=== PATIENT | male | born 1975 | race Caucasian/White ===

== ENCOUNTER 2017-11-02 02:17 | Inpatient (IN) ==
--- NOTE | 2017-11-02 03:33 | XR ---
EXAM DATE: 11/02/2017 3:29 AM EDT AGE/SEX: 42 years / Male INDICATIONS: Fever. Shortness of breath. CLINICAL DATA: This is the patient's initial encounter. Patient reports that signs and symptoms have been present for 2 days and indicates a pain score of 1/10. MEDICAL/SURGICAL HISTORY: None. None. COMPARISON: No prior exams available for comparison. FINDINGS: Portable AP view of the chest demonstrates a normal-sized cardiac silhouette. No effusion, consolidat ion, or pneumothorax is identified. The bones and soft tissues demonstrate no acute finding. CONCLUSION: No acute cardiopulmonary abnormality is identified. Electronically signed by: Arnold Cordero MD 11/02/2017 3:31 AM EDT
--- NOTE | 2017-11-02 03:36 | ED ---
HPI General Chief complaint: Respiratory Symptoms Stated complaint: SOB,Chest tight Time Seen by Provider: 11/02/17 02:50 Source: patient History of Present Illness HPI narrative: The patient is a 42 year old male who presents to the [facility] emergency department with a history of HIV, Bipolar disorder, hypertension c/o new onset headaches, shortness of breath and cough for 1 month duration. Today, his shortness of breath became acutely worse when he was on a brisk walk, he felt dizzy and tightness in his chest. His cough has been nonproductive in the beginning with associated sore throat. Now his cough is productive of green sputum. His headaches have been frontal in nature with associated photophobia. He notable has not been receiving treatment for his HIV for 5 years since diagnosis. When asked why he does not take any HIV related medications, he reports that it is a long story and refuses to elaborate. The patient's review of systems is limited as the patient repeatedly refuses to answer questions. Related Data Allergies Allergy/AdvReac Type Severity Reaction Status Date / Time No Known Allergies Allergy Unverified 11/02/17 02:24 Review of Systems Constitutional Reports anorexia, Reports difficulty sleeping, Reports lethargy and Reports poor appetite Eyes Reports blurry vision, Reports eye pain and Reports photophobia ENT Reports nasal congestion and Reports post nasal drip Cardiovascular Reports as per HPI and Reports dyspnea on exertion Respiratory Reports chest congestion, Reports cough, Denies hemoptysis, Reports pain on inspiration, Reports pain with cough and Reports dyspnea on exertion Gastrointestinal Reports constipation and Reports diarrhea (alternating diarrhea and constipation ) Genitourinary Reports system reviewed and no additional complaints, except as docu Musculoskeletal Reports system reviewed and no additional complaints, except as docu Integumentary/Breasts Reports system reviewed and no additional complaints, except as docu and Denies rash Neurologic Reports dizziness and Reports headache(s) Psychiatric Denies depression and Reports irritability Endocrine Reports system reviewed and no additional complaints, except as docu Hematologic/Lymphatic Reports system reviewed and no additional complaints, except as docu [facility] Medical History Medical History AIDS (Acute) Bipolar 1 disorder (Acute) HIV (human immunodeficiency virus infection) (Acute) Hypertension (Acute) Noncompliance (Acute) Orthopedic aftercare for healing pathologic lower arm fracture (Acute) Family History Family History Other Family history of hypertension Social History Social History Substance History: Active Abuse Smoking Status: Current every day smoker Tobacco Type: Cigarettes Packs Per Day: 1 Cigarettes Per Day: 20.0 How Often Do You Have a Drink Containing Alcohol: 4 or more times a week Hx Recent Travel: No Recent Travel in [facility] within the Last 8 Weeks: No Recent Out of Country Travel within the Last 8 Weeks: No Immunization History Tetanus Immunization: >5 Years Hx Influenza Vaccine This Season: No Exam Const Nutritional Appearance: thin Orientation: alert, awake and oriented x3 Limitations: behavioral limitations (patient is a poor historian with restricted information shared) HENMT Head: normocephalic and atraumatic Nose: no nasal discharge and no epistaxis Mouth: moist mucous membranes Throat: uvula midline and other (Posterior oropharynx is mildly erythematous. No thrush noted.) Eyes Sclera: normal sclerae Pupils: PERRL Neck Neck: trachea midline and no JVD Lymphatic: no lymphadenopathy noted Resp Effort & Inspection: no use of accessory muscles Auscultation: clear to auscultation bilaterally Cardio Rate: regular rate Rhythm: regular rhythm Heart Sounds: no murmurs GI Inspection: non-distended Palpation: soft, no hepatosplenomegaly and tender (diffusely tender to palpation ) Skin General: dry skin (warm) Neuro General: alert and awake Cranial Nerves: other Speech: speech normal Motor: no movement abnormalities noted Extrem General: normal to inspection, no clubbing, no cyanosis and no edema Psych Speech and Movement: speech and movement normal Mood: irritable mood Affect: irritable affect and blunted Attitude: guarded, avoids eye contact and refuses to answer Course Consultations Consultation #1: The patient's case including history, pertinent physical examination findings, and laboratory studies were discussed with Dr. Oconnor. It was agreed that the patient would be admitted to the hospitalist service. Initial Documented Vital Signs Temperature 99.3 F 11/02/17 02:24 Pulse Rate 104 H 11/02/17 02:24 Respiratory Rate 17 11/02/17 02:24 Blood Pressure 135/73 11/02/17 02:24 Pulse Oximetry 99 11/02/17 02:24 Last Documented Vital Signs Temperature 97.2 F L 11/02/17 16:00 Pulse Rate 79 11/02/17 16:00 Respiratory Rate 20 11/02/17 16:00 Blood Pressure 117/66 11/02/17 16:00 Pulse Oximetry 98 11/02/17 16:00 Medical Decision Making MDM Narrative Medical decision making narrative: During the course of the patient's emergency department visit, the patient's history, examination, and differential diagnosis were reviewed with the patient. The patient was placed on a hospital monitor with oximetry and frequent blood pressure monitoring. The patient had IV access obtained and blood work sent for analysis. The patient was initially provided normal saline 1 L IV fluid bolus, Levaquin 750 mg IV for suspected bronchitis versus pneumonia. The patient's diagnostic evaluation was remarkable for a white count of 6.1, platelets 212, neutrophil percent 70.9, hemoglobin within normal limits at 13.7 , PT PTT within normal limits, chemistry is remarkable for a troponin I that is less than 0.02, CPK is elevated consistent with rhabdomyolysis with a CPK of 3008. CTA CK-MB percent within normal limits. BUN less than 2 BNP is less than 2, BUN 22, AST 94. Alcohol level less than 3. Chest x-ray showed no acute cardiopulmonary disease. The patient will be admitted to the hospital for rhabdomyolysis. The patient reports that he does use illicit drugs, however he refuses to elaborate on which drugs. The patient's results were discussed with the patient, including the plan of care. I explained that further testing and/ or monitoring is indicated based on the patient's history, examination, and/ or laboratory findings. Therefore, I recommended admission for additional evaluation. The patient expressed understanding and was agreeable with this plan. The patient was admitted to the hospital in stable condition and sent to a bed under the care of the [facility] service. Medical Screen Exam Complete: Yes Emergency Medical Condition: Yes Differential Diagnosis Differential Diagnosis: Shortness of breath/cough: HIV associated pneumonia vs congestive heart failure vs lung disease Photophobia/headache: CMV retinitis vs optic neuritis vs HIV associated encephalitis Lab Data Result diagrams: 11/02/17 03:25 11/02/17 03:25 Lab Results 11/02/17 11/02/17 11/02/17 Range/Units 03:25 03:25 03:25 WBC 6.1 (4.0-11.0) th/mm3 RBC 4.74 (4.50-5.90) mil/mm3 Hgb 13.7 (13.0-17.0) gm/dL Hct 40.2 (39.0-51.0) % MCV 84.8 (80.0-100.0) fL MCH 28.9 (27.0-34.0) pg MCHC 34.0 (32.0-36.0) % RDW 12.7 (11.6-17.2) % Plt Count 212 (150-450) th/mm3 MPV 8.1 (7.0-11.0) fL Neut % (Auto) 70.9 H (16.0-70.0) % Lymph % (Auto) 19.9 (9.0-44.0) % [place] % (Auto) 5.5 (0.0-8.0) % Eos % (Auto) 3.0 (0.0-4.0) % Baso % (Auto) 0.7 (0.0-2.0) % Neut # (Auto) 4.4 (1.8-7.7) th/mm3 Lymph # (Auto) 1.2 (1.0-4.8) th/mm3 [place] # (Auto) 0.3 (0.0-0.9) th/mm3 Eos # (Auto) 0.2 (0.0-0.4) th/mm3 Baso # (Auto) 0.0 (0.0-0.2) th/mm3 WBC Differential . Differential Comment Auto diff final PT 10.2 (9.8-11.6) sec INR 1.0 Ratio APTT 26.6 (24.3-30.1) sec Sodium 140 (136-145) meq/L Potassium 3.6 (3.5-5.1) meq/L Chloride 108 H (98-107) meq/L Carbon Dioxide 26.4 (21.0-32.0) meq/L Anion Gap 6 (5-15) meq/L BUN 22 H (7-18) mg/dL Creatinine 0.89 (0.60-1.30) mg/dL Estimated GFR Greater than 89 (>89) mL/min Random Glucose 82 (74-106) mg/dL Hemoglobin A1c (4.3-6.0) % Lactic Acid (0.4-2.0) mmol/L Calcium 8.7 (8.5-10.1) mg/dL Magnesium 2.0 (1.5-2.5) mg/dL Total Bilirubin 0.5 (0.2-1.0) mg/dL AST 94 H (15-37) U/L ALT 33 (12-78) U/L Alkaline Phosphatase 83 (45-117) U/L Total Creatine Kinase 3008 H (39-308) U/L CK-MB (CK-2) 33.6 H (0.5-3.6) ng/mL CK-MB (CK-2) % 1.1 (0.0-4.0) % Troponin I Less than 0.02 L (0.02-0.05) ng/mL B-Natriuretic Peptide (0-100) pg/mL Total Protein 7.6 (6.4-8.2) g/dL Albumin 3.8 (3.4-5.0) g/dL Lipase 124 (73-393) U/L TSH (0.358-3.740) uIU/mL Free T4 (0.76-1.46) ng/dL Serum Alcohol Less than 3 (0-5) mg/dL HIV 1&2 Ab/P24 Ag 4thGn (Nonreactive) 11/02/17 11/02/17 11/02/17 Range/Units 03:25 03:32 13:04 WBC (4.0-11.0) th/mm3 RBC (4.50-5.90) mil/mm3 Hgb (13.0-17.0) gm/dL Hct (39.0-51.0) % MCV (80.0-100.0) fL MCH (27.0-34.0) pg MCHC (32.0-36.0) % RDW (11.6-17.2) % Plt Count (150-450) th/mm3 MPV (7.0-11.0) fL Neut % (Auto) (16.0-70.0) % Lymph % (Auto) (9.0-44.0) % [place] % (Auto) (0.0-8.0) % Eos % (Auto) (0.0-4.0) % Baso % (Auto) (0.0-2.0) % Neut # (Auto) (1.8-7.7) th/mm3 Lymph # (Auto) (1.0-4.8) th/mm3 [place] # (Auto) (0.0-0.9) th/mm3 Eos # (Auto) (0.0-0.4) th/mm3 Baso # (Auto) (0.0-0.2) th/mm3 WBC Differential Differential Comment PT (9.8-11.6) sec INR Ratio APTT (24.3-30.1) sec Sodium (136-145) meq/L Potassium (3.5-5.1) meq/L Chloride (98-107) meq/L Carbon Dioxide (21.0-32.0) meq/L Anion Gap (5-15) meq/L BUN (7-18) mg/dL Creatinine (0.60-1.30) mg/dL Estimated GFR (>89) mL/min Random Glucose (74-106) mg/dL Hemoglobin A1c (4.3-6.0) % Lactic Acid 0.5 (0.4-2.0) mmol/L Calcium (8.5-10.1) mg/dL Magnesium (1.5-2.5) mg/dL Total Bilirubin (0.2-1.0) mg/dL AST (15-37) U/L ALT (12-78) U/L Alkaline Phosphatase (45-117) U/L Total Creatine Kinase (39-308) U/L CK-MB (CK-2) (0.5-3.6) ng/mL CK-MB (CK-2) % (0.0-4.0) % Troponin I (0.02-0.05) ng/mL B-Natriuretic Peptide Less than 2 (0-100) pg/mL Total Protein (6.4-8.2) g/dL Albumin (3.4-5.0) g/dL Lipase (73-393) U/L TSH 0.740 (0.358-3.740) uIU/mL Free T4 (0.76-1.46) ng/dL Serum Alcohol (0-5) mg/dL HIV 1&2 Ab/P24 Ag 4thGn (Nonreactive) 11/02/17 11/02/17 11/02/17 Range/Units 13:15 13:15 13:15 WBC (4.0-11.0) th/mm3 RBC (4.50-5.90) mil/mm3 Hgb (13.0-17.0) gm/dL Hct (39.0-51.0) % MCV (80.0-100.0) fL MCH (27.0-34.0) pg MCHC (32.0-36.0) % RDW (11.6-17.2) % Plt Count (150-450) th/mm3 MPV (7.0-11.0) fL Neut % (Auto) (16.0-70.0) % Lymph % (Auto) (9.0-44.0) % [place] % (Auto) (0.0-8.0) % Eos % (Auto) (0.0-4.0) % Baso % (Auto) (0.0-2.0) % Neut # (Auto) (1.8-7.7) th/mm3 Lymph # (Auto) (1.0-4.8) th/mm3 [place] # (Auto) (0.0-0.9) th/mm3 Eos # (Auto) (0.0-0.4) th/mm3 Baso # (Auto) (0.0-0.2) th/mm3 WBC Differential Differential Comment PT (9.8-11.6) sec INR Ratio APTT (24.3-30.1) sec Sodium (136-145) meq/L Potassium (3.5-5.1) meq/L Chloride (98-107) meq/L Carbon Dioxide (21.0-32.0) meq/L Anion Gap (5-15) meq/L BUN (7-18) mg/dL Creatinine (0.60-1.30) mg/dL Estimated GFR (>89) mL/min Random Glucose (74-106) mg/dL Hemoglobin A1c 5.3 (4.3-6.0) % Lactic Acid (0.4-2.0) mmol/L Calcium (8.5-10.1) mg/dL Magnesium (1.5-2.5) mg/dL Total Bilirubin (0.2-1.0) mg/dL AST (15-37) U/L ALT (12-78) U/L Alkaline Phosphatase (45-117) U/L Total Creatine Kinase (39-308) U/L CK-MB (CK-2) (0.5-3.6) ng/mL CK-MB (CK-2) % (0.0-4.0) % Troponin I (0.02-0.05) ng/mL B-Natriuretic Peptide (0-100) pg/mL Total Protein (6.4-8.2) g/dL Albumin (3.4-5.0) g/dL Lipase (73-393) U/L TSH (0.358-3.740) uIU/mL Free T4 1.04 (0.76-1.46) ng/dL Serum Alcohol (0-5) mg/dL HIV 1&2 Ab/P24 Ag 4thGn Reflex H (Nonreactive) Imaging Data Radiologist's impression: Chest X-Ray 11/02/17 03:10 CONCLUSION: No acute cardiopulmonary abnormality is identified. Head CT 11/02/17 03:14 CONCLUSION: No acute intracranial abnormality is identified. . Discharge Plan Discharge Disposition Patient Disposition: 30 Still Patient Discharge Details Diagnosis: Rhabdomyolysis, Bronchitis Physicians Team ED Provider: Anju Adkins Primary Care Provider: Primary Care Gloria Álvarez Attending Provider: Rajinder Osorio Discharge Interventions Interventions: ED Discharge Assessment Last Done: 11/02/17 06:09 Status ED Status: Left Department Discharge Information Discharge Date/Time: 11/02/17 06:11
[2017-11-02 03:40] LABS: Baso % (Auto) 0.7 % (0.0-2.0); Eos # (Auto) 0.2 th/mm3 (0.0-0.4); Hematocrit 40.2 % (39.0-51.0); Hemoglobin 13.7 gm/dL (13.0-17.0); Lymph # (Auto) 1.2 th/mm3 (1.0-4.8); Lymph % (Auto) 19.9 % (9.0-44.0); Mean Corpuscular Hemoglobin 28.9 pg (27.0-34.0); Mean Corpuscular Volume 84.8 fL (80.0-100.0); Mean Platelet Volume 8.1 fL (7.0-11.0); Mono # (Auto) 0.3 th/mm3 (0.0-0.9); Mono % (Auto) 5.5 % (0.0-8.0); Neut # (Auto) 4.4 th/mm3 (1.8-7.7); Neut % (Auto) 70.9 % (16.0-70.0); Platelet Count 212 th/mm3 (150-450); Red Blood Count 4.74 mil/mm3 (4.50-5.90); Red Cell Distribution Width 12.7 % (11.6-17.2); White Blood Count 6.1 th/mm3 (4.0-11.0)
[2017-11-02 03:52] LABS: Activated Partial Thrombo Time 26.6 sec (24.3-30.1); Prothrombin Time 10.2 sec (9.8-11.6)
[2017-11-02 03:58] LABS: Albumin 3.8 g/dL (3.4-5.0); Anion Gap 6 meq/L (5-15); Aspartate Aminotransferase 94 U/L (15-37); Blood Urea Nitrogen 22 mg/dL (7-18); Calcium 8.7 mg/dL (8.5-10.1); Carbon Dioxide 26.4 meq/L (21.0-32.0); Chloride 108 meq/L (98-107); Glomerular Filtration Rate Greater Than 89 mL/min (>89); Glucose,Random 82 mg/dL (74-106); Lipase 124 U/L (73-393); Potassium 3.6 meq/L (3.5-5.1); Sodium 140 meq/L (136-145)
[2017-11-02 03:59] LABS: Alanine Aminotransferase 33 U/L (12-78)
[2017-11-02 04:12] LABS: Alkaline Phosphatase 83 U/L (45-117); Creatine Kinase 3008 U/L (39-308); Total Protein 7.6 g/dL (6.4-8.2)
[2017-11-02 04:24] LABS: CKMB Percent 1.1 % (0.0-4.0); Creatine Kinase MB 33.6 ng/mL (0.5-3.6)
[2017-11-02] MEDS ORDERED: Sod Chloride 0.9% Inj 1,000 ML IV.SIG ONE (04:25)
--- NOTE | 2017-11-02 04:26 | CT ---
EXAM DATE: 11/02/2017 4:21 AM EDT AGE/SEX: 42 years / Male INDICATIONS: Headaches. CLINICAL DATA: This is the patient's initial encounter. Patient reports that signs and symptoms have been present for 1 day and indicates a pain score of 7/10. MEDICAL/SURGICAL HISTORY: None. None. RADIATION DOSE: 37.73 CTDI (mGy) COMPARISON: No prior exams available for comparison. TECHNIQUE: CT of the head without contrast. Using automated exposure control and adjustment of the mA and/or kV according to patient size, radiation dose was kept as low as reasonably achievable to ob tain optimal diagnostic quality images. DICOM format image data is available electronically for revi ew and comparison. FINDINGS: Cerebrum: The ventricles are normal. No midline shift, mass lesion, hemorrhage or acute infarction. No extraaxial fluid collections are seen. Posterior Fossa: The cerebellum and brainstem demonstrate no acute abnormality. The 4th ventricle is midline. The cerebellopontine angle is within normal limits. Extracranial: The visualized sinuses are clear. Skull: The calvaria is intact. No skull fracture. CONCLUSION: No acute intracranial abnormality is identified. . Electronically signed by: Arnold Cordero MD 11/02/2017 4:25 AM EDT
[2017-11-02] MEDS ORDERED: Acetaminophen 325 MG Tablet PO PRN (04:46)
[2017-11-02] MEDS ORDERED: Bisacodyl 10 MG Supp RECTAL PRN ×2 (04:46→12:13)
[2017-11-02] MEDS: Sod Chloride 0.9% Inj 1,000 ML IV.CONT SCH ×2 (05:27→09:00)
--- NOTE | 2017-11-02 07:55 | ECG ---
Date Performed: 11/02/2017 Time Performed: 03:31:12 PTAGE: 42 years EKG: Sinus rhythm NORMAL ECG PREVIOUS TRACING : 07/22/2005 17.35 No significant change from previous tracing noted. DOCTOR: Osmar Reyes Interpretating Date/Time 11/02/2017 07:53:16
[2017-11-02] MEDS ORDERED: Senna/Docusate Sodium 8.6/50 MG Tablet PO SCH (09:00)
[2017-11-02] MEDS ORDERED: Zolpidem Tartrate 5 MG Tablet PO PRN (12:13)
[2017-11-02] MEDS ORDERED: Morphine Sulfate Inj 2 MG/ML Vial IV.PUSH PRN (12:15)
[2017-11-02] MEDS ORDERED: Morphine Inj 4 MG/ML Vial IV.PUSH PRN (12:15)
[2017-11-02] MEDS ORDERED: Naloxone Inj 0.4 MG/ML Vial IV.PUSH PRN (12:15)
--- NOTE | 2017-11-02 12:15 | P.HPIM ---
History of Present Illness Service: [facility] Primary Care Physician: No Primary Care Physician Chief Complaint: SOB/CHEST TIGHTNESS History of Present Illness: Patient is a 42-year-old male who is brought into [facility] emergency department with a history of HIV positive, bipolar disorder, hypertension, and new onset of headache and shortness of breath and a cough for at least a month. Patient has a history of shortness of breath that has been worsening worsens when walking. He felt dizzy and tightness in his chest therefore presented emergency he has had a nonproductive cough and some sore throat. Patient currently states that he is homeless. Has had some headaches on and off that are frontal. He has not taken any medications for his HIV for at least 18+ months if not longer More than likely has HIV and full-blown AIDS We will check CD4 counts Was found to have rhabdomyolysis will start on fluids and will be monitored. Review of Systems All other systems reviewed negative except as stated [facility] - History History Provided By: Patient - Medical History Medical History: Medical History (Last Updated 11/02/17 @ 11:57 by Rajinder Osoiro DO) AIDS Bipolar 1 disorder HIV (human immunodeficiency virus infection) Hypertension Noncompliance Orthopedic aftercare for healing pathologic lower arm fracture - Family History Family History: Family History (Last Updated 11/02/17 @ 11:57 by Rajinder Osorio DO) Other Family history of hypertension - Tobacco History Second Hand Smoke Exposure: No Tobacco Use In Past 30 Days: Yes Smoking Status: Never smoker Tobacco Type: Cigarettes Packs Per Day: 1 Cigarettes Per Day: 20.0 - Alcohol History How Often Do You Have a Drink Containing Alcohol: 4 or more times a week - Substance Use History Substance History: Active Abuse - Substance Use Type Marijuana Status: Active Frequency: EVERY THREE DAYS Reason for Use: Calm Down - Travel History History of Recent Travel: No Recent Travel in the [place] Within the Last 8 Weeks: No Recent Travel Out of the Country Within the Last 8 Weeks: No - Immunization History Tetanus Immunization: >5 Years Hx Influenza Vaccine This Season: Yes Medications and Allergies Active Medications: Active Medications Acetaminophen (Tylenol) 650 mg PO Q4H PRN PRN Reason: Temp > 100.4 Al Hydroxide/Mg Hydroxide (Milk Of Magnesia Liq) 30 ml PO Q12H PRN PRN Reason: Mild Constipation Bisacodyl (Dulcolax Supp) 10 mg RECTAL DAILY PRN PRN Reason: SEVERE CONSITIPATION Sodium Chloride (Ns Inj) 1,000 mls @ 200 mls/hr IV.CONT .Q5H [facility] Last Admin: 11/02/17 09:00 Dose: 200 mls/hr Lactulose (Lactulose Liq) 30 ml PO DAILY PRN PRN Reason: SEVERE CONSITIPATION Ondansetron HCl (Zofran Inj) 4 mg IV.PUSH Q6H PRN PRN Reason: NAUSEA OR VOMITING Senna/Docusate Sodium (Hilary-Colace) 1 tab PO BID [facility] Last Admin: 11/02/17 08:05 Dose: Not Given Sennosides (Senokot) 17.2 mg PO Q12H PRN PRN Reason: Moderate Constipation Allergies Allergy/AdvReac Type Severity Reaction Status Date / Time No Known Allergies Allergy Unverified 11/02/17 02:24 Exam Vital signs: Vital Signs 11/02/17 02:24 11/02/17 06:45 11/02/17 08:00 Temperature 99.3 F 97.4 F L 97.7 F Pulse Rate 104 H 82 72 Respiratory Rate 17 19 20 Blood Pressure 135/73 95/59 L 99/60 L Pulse Oximetry 99 96 99 11/02/17 09:00 Temperature Pulse Rate 72 Respiratory Rate Blood Pressure Pulse Oximetry Intake & Output 11/01/17 11/02/17 11/02/17 18:59 06:59 18:59 Intake Total 1150 / 1150 1000 / 1000 Balance 1150 / 1150 1000 / 1000 Weight 60.4 kg Intake: IV 1150 / 1150 1000 / 1000 NS Inj 1,000 ML @ 200 mls/hr IV 1000 / 1000 .CONT .Q5H [facility] Rx#:[id number] Levaquin 750 mg Premix Inj 150 150 / 150 ML @ 100 mls/hr IV.SIG ONCE ONE Rx#:[id number] NS Inj 1,000 ML @ Wide Open IV. 1000 / 1000 SIG BOLUS ONE Rx#:[id number] Other: Weight On Admission 60.4 kg Narrative: GENERAL: Thin appearing male. Currently awake alert and oriented 3 talkative and cooperative SKIN: Warm and dry. HEAD: Atraumatic. Normocephalic. EYES: Pupils equal and round. No scleral icterus. No injection or drainage. EOMI ENT: No nasal bleeding or discharge. Mucous membranes pink and moist. Tongue is midline NECK: Trachea midline. No JVD. Supple CARDIOVASCULAR: Regular rate and rhythm. S1-S2 no S3 or S RESPIRATORY: No accessory muscle use. Clear to auscultation. Breath sounds equal bilaterally. GASTROINTESTINAL: Abdomen soft, non-tender, nondistended. Hepatic and splenic margins not palpable. MUSCULOSKELETAL: Extremities without clubbing, cyanosis, or edema. No obvious deformities. NEUROLOGICAL: Awake and alert. No obvious cranial nerve deficits. Motor grossly within normal limits. 4out of 5 muscle strength in the arms and legs. Normal speech. PSYCHIATRIC: Appropriate mood and affect; insight and judgment ABnormal. Results - Labs CBC & Chem 7: 11/02/17 03:25 11/02/17 03:25 Labs: Short CBC 11/02/17 Range/Units 03:25 WBC 6.1 (4.0-11.0) th/mm3 Hgb 13.7 (13.0-17.0) gm/dL Hct 40.2 (39.0-51.0) % Plt Count 212 (150-450) th/mm3 BMP 11/02/17 03:25 Sodium 140 Potassium 3.6 Chloride 108 H Carbon Dioxide 26.4 BUN 22 H Creatinine 0.89 Calcium 8.7 Cardiac Enzymes 11/02/17 Range/Units 03:25 Total Creatine Kinase 3008 H (39-308) U/L CK-MB (CK-2) 33.6 H (0.5-3.6) ng/mL Troponin I Less than 0.02 L (0.02-0.05) ng/mL Liver Function 11/02/17 Range/Units 03:25 Total Bilirubin 0.5 (0.2-1.0) mg/dL AST 94 H (15-37) U/L ALT 33 (12-78) U/L Alkaline Phosphatase 83 (45-117) U/L Albumin 3.8 (3.4-5.0) g/dL - Imaging Impressions Chest X-Ray 11/02/17 03:10 CONCLUSION: No acute cardiopulmonary abnormality is identified. Head CT 11/02/17 03:14 CONCLUSION: No acute intracranial abnormality is identified. . Caprini VTE Risk Assessment Caprini VTE Risk Assessment: Moderate/High Risk (score >= 2) Caprini Risk Assessment Model: Point Value = 1 Point Value = 2 Point Value = 3 Point Value = 5 Age 41-60 Minor surgery BMI > 25 kg/m2 Swollen legs Varicose veins or History of unexplained or recurrent spontaneous Oral contraceptives or hormone replacement Sepsis (< 1 month) Serious lung disease, including pneumonia (< 1 month) Abnormal pulmonary function Acute myocardial infarction Congestive heart failure (< 1 month) History of inflammatory bowel disease Medical patient at bed rest Age 61-74 Arthroscopic surgery Major open surgery (> 45 min) Laparoscopic surgery (> 45 min) Malignancy Confined to bed (> 72 hours) Immobilizing plaster cast Central venous access Age >= 75 History of VTE Family history of VTE Factor V Leiden Prothrombin [id number] Lupus anticoagulant Anticardiolipin antibodies Elevated serum homocysteine Heparin-induced thrombocytopenia Other congenital or acquired thrombophilia Stroke (< 1 month) Elective arthroplasty Hip, pelvis, or leg fracture Acute spinal cord injury (< 1 month) Prophylaxis Regimen: Total Risk Factor Score Risk Level Prophylaxis Regimen 0-1 Low Early ambulation 2 Moderate Order ONE of the following: *Sequential Compression Device (SCD) *Heparin 5000 units SQ BID 3-4 Higher Order ONE of the following medications: *Heparin 5000 units SQ TID *Enoxaparin/Lovenox 40 mg SQ daily (WT < 150 kg, CrCl > 30 mL/min) *Enoxaparin/Lovenox 30 mg SQ daily (WT < 150 kg, CrCl > 10-29 mL/min) *Enoxaparin/Lovenox 30 mg SQ BID (WT < 150 kg, CrCl > 30 mL/min) AND/OR *Sequential Compression Device (SCD) 5 or more Highest Order ONE of the following medications: *Heparin 5000 units SQ TID (Preferred with Epidurals) *Enoxaparin/Lovenox 40 mg SQ daily (WT < 150 kg, CrCl > 30 mL/min) *Enoxaparin/Lovenox 30 mg SQ daily (WT < 150 kg, CrCl > 10-29 mL/min) *Enoxaparin/Lovenox 30 mg SQ BID (WT < 150 kg, CrCl > 30 mL/min) AND *Sequential Compression Device (SCD) Assessment and Plan - Plan HIV/AIDS with complete medical noncompliance currently on no medications -Check CD4 counts Rhabdomyolysis found per labs continue on IV fluids wide bicarb History of bipolar History of hypertension Try to obtain treatment for these Malignant noncompliance-patient is noncompliant with medications Tobacco and alcohol abuse and marijuana abuse Continue DVT and GI prophylaxis Code Status: Full code Discussed Condition With: RN and patient Discharge Planning: Pending improvement H&P: Quality - VTE Deep Vein Thrombosis/Pulmonary Embolism Present on Admission: No
[2017-11-02] MEDS: Sodium Bicarbonate 8.4% Inj 150 MEQ in Sod Chloride 0.9% Inj 850 ML IV.CONT SCH ×2 (13:04→21:16)
[2017-11-02] MEDS: Enoxaparin Inj 40 MG/0.4 ML Syringe SQ SCH (13:16)
[2017-11-02 15:50] LABS: Hemoglobin A1c 5.3 % (4.3-6.0)
[2017-11-02] MEDS: Senna/Docusate Sodium 8.6/50 MG Tablet PO SCH (21:17)
[2017-11-03] MEDS: Sodium Bicarbonate 8.4% Inj 150 MEQ in Sod Chloride 0.9% Inj 850 ML IV.CONT SCH ×8 (00:03→23:47)
[2017-11-03 09:13] LABS: Baso % (Auto) 0.6 % (0.0-2.0); Eos # (Auto) 0.2 th/mm3 (0.0-0.4); Eos % (Auto) 4.9 % (0.0-4.0); Hematocrit 36.7 % (39.0-51.0); Hemoglobin 12.5 gm/dL (13.0-17.0); Lymph % (Auto) 25.1 % (9.0-44.0); Mean Corpuscular HGB Conc 34.1 % (32.0-36.0); Mean Corpuscular Hemoglobin 28.5 pg (27.0-34.0); Mean Corpuscular Volume 83.5 fL (80.0-100.0); Mean Platelet Volume 8.5 fL (7.0-11.0); Mono # (Auto) 0.3 th/mm3 (0.0-0.9); Mono % (Auto) 7.4 % (0.0-8.0); Neut # (Auto) 2.5 th/mm3 (1.8-7.7); Platelet Count 163 th/mm3 (150-450); Red Blood Count 4.39 mil/mm3 (4.50-5.90)
[2017-11-03 09:17] LABS: Prothrombin Time 10.4 sec (9.8-11.6)
[2017-11-03 09:40] LABS: Alanine Aminotransferase 19 U/L (12-78); Albumin 2.6 g/dL (3.4-5.0); Anion Gap 8 meq/L (5-15); Aspartate Aminotransferase 34 U/L (15-37); Blood Urea Nitrogen 11 mg/dL (7-18); Calcium 7.6 mg/dL (8.5-10.1); Carbon Dioxide 28.5 meq/L (21.0-32.0); Chloride 111 meq/L (98-107); Glomerular Filtration Rate Greater Than 89 mL/min (>89); Glucose,Random 81 mg/dL (74-106); Magnesium 1.8 mg/dL (1.5-2.5); Potassium 3.5 meq/L (3.5-5.1); Sodium 147 meq/L (136-145)
[2017-11-03 09:45] LABS: Alkaline Phosphatase 63 U/L (45-117); Creatine Kinase 697 U/L (39-308); Total Protein 5.4 g/dL (6.4-8.2)
[2017-11-03 10:01] LABS: CKMB Percent 0.9 % (0.0-4.0); Creatine Kinase MB 6.4 ng/mL (0.5-3.6)
[2017-11-03] MEDS: Senna/Docusate Sodium 8.6/50 MG Tablet PO SCH ×2 (10:55→20:13)
[2017-11-03] MEDS: Enoxaparin Inj 40 MG/0.4 ML Syringe SQ SCH (14:09)
--- NOTE | 2017-11-03 16:49 | P.PNIM ---
Subjective Interval history: Patient is a 42-year-old male who is brought into [facility] emergency department with a history of HIV positive, bipolar disorder, hypertension, and new onset of headache and shortness of breath and a cough for at least a month. Patient has a history of shortness of breath that has been worsening worsens when walking. He felt dizzy and tightness in his chest therefore presented emergency he has had a nonproductive cough and some sore throat. Patient currently states that he is homeless. Has had some headaches on and off that are frontal. He has not taken any medications for his HIV for at least 18+ months if not longer More than likely has HIV and full-blown AIDS We will check CD4 counts Was found to have rhabdomyolysis will start on fluids and will be monitored. 8-5 HAS POSITIVE COUGH AND CONGESTION WILL ADD MUCINEX AND DUONEBS PROBABLY HAS FULL BLOWN AIDS NEEDS PT AND OT Physical Exam Vital signs: Vital Signs 11/02/17 19:11 11/02/17 20:00 11/03/17 00:00 Temperature 98.3 F 98.4 F Pulse Rate 62 62 Respiratory Rate 18 18 Blood Pressure 114/72 116/76 Pulse Oximetry 98 96 94 L 11/03/17 04:00 11/03/17 08:00 11/03/17 09:00 Temperature 98.3 F 97.9 F Pulse Rate 56 L 71 56 L Respiratory Rate 19 20 Blood Pressure 117/75 135/74 Pulse Oximetry 92 L 95 11/03/17 10:13 11/03/17 12:00 Temperature 99.1 F Pulse Rate 58 L Respiratory Rate 18 Blood Pressure 140/80 Pulse Oximetry 93 L 94 L Intake & Output 11/02/17 11/03/17 11/03/17 18:59 06:59 18:59 Intake Total 1600 / 1600 2039 / 2040 1000 / 1000 Output Total 0 / 0 Balance 1600 / 1600 2039 / 2039 1000 / 1000 Weight 62.5 kg Intake: IV 1600 / 1600 1800 / 1800 1000 / 1000 NS Inj 1,000 ML @ 200 mls/hr IV 1600 / 1600 .CONT .Q5H [facility] Rx#:[id number] Sodium Bicarbonate 8.4% Inj 150 1800 / 1800 1000 / 1000 MEQ In NS Inj 850 ML @ 150 mls /hr IV.CONT .Q6H40M [facility] Rx#: [id number] Oral 240 / 240 Output: Urine 0 / 0 Narrative: GENERAL: Thin appearing male. Currently awake alert and oriented 3 talkative and cooperative SKIN: Warm and dry. HEAD: Atraumatic. Normocephalic. EYES: Pupils equal and round. No scleral icterus. No injection or drainage. EOMI ENT: No nasal bleeding or discharge. Mucous membranes pink and moist. Tongue is midline NECK: Trachea midline. No JVD. Supple CARDIOVASCULAR: Regular rate and rhythm. S1-S2 no S3 or S RESPIRATORY: No accessory muscle use. Clear to auscultation. Breath sounds equal bilaterally. GASTROINTESTINAL: Abdomen soft, non-tender, nondistended. Hepatic and splenic margins not palpable. MUSCULOSKELETAL: Extremities without clubbing, cyanosis, or edema. No obvious deformities. NEUROLOGICAL: Awake and alert. No obvious cranial nerve deficits. Motor grossly within normal limits. 4out of 5 muscle strength in the arms and legs. Normal speech. PSYCHIATRIC: Appropriate mood and affect; insight and judgment ABnormal. Results - Labs CBC & Chem 7: 11/03/17 07:53 11/03/17 07:53 Laboratory Results - last 24 hr 11/02/17 11/02/17 11/03/17 13:15 13:15 07:53 WBC 4.0 RBC 4.39 L Hgb 12.5 L Hct 36.7 L MCV 83.5 MCH 28.5 MCHC 34.1 RDW 13.0 Plt Count 163 MPV 8.5 Neut % (Auto) 62.0 Lymph % (Auto) 25.1 [place] % (Auto) 7.4 Eos % (Auto) 4.9 H Baso % (Auto) 0.6 Neut # (Auto) 2.5 Lymph # (Auto) 1.0 [place] # (Auto) 0.3 Eos # (Auto) 0.2 Baso # (Auto) 0.0 WBC Differential . Differential Comment Auto diff final PT INR Sodium Potassium Chloride Carbon Dioxide Anion Gap BUN Creatinine Estimated GFR Random Glucose Hemoglobin A1c 5.3 Calcium Phosphorus Magnesium Total Bilirubin AST ALT Alkaline Phosphatase Total Creatine Kinase CK-MB (CK-2) CK-MB (CK-2) % Total Protein Albumin HIV 1&2 Ab/P24 Ag 4thGn Reflex H 11/03/17 11/03/17 07:53 07:53 WBC RBC Hgb Hct MCV MCH MCHC RDW Plt Count MPV Neut % (Auto) Lymph % (Auto) [place] % (Auto) Eos % (Auto) Baso % (Auto) Neut # (Auto) Lymph # (Auto) [place] # (Auto) Eos # (Auto) Baso # (Auto) WBC Differential Differential Comment PT 10.4 INR 1.0 Sodium 147 H Potassium 3.5 Chloride 111 H Carbon Dioxide 28.5 Anion Gap 8 BUN 11 Creatinine 0.75 Estimated GFR Greater than 89 Random Glucose 81 Hemoglobin A1c Calcium 7.6 L D Phosphorus 2.0 L Magnesium 1.8 Total Bilirubin 0.4 AST 34 ALT 19 Alkaline Phosphatase 63 Total Creatine Kinase 697 H CK-MB (CK-2) 6.4 H CK-MB (CK-2) % 0.9 Total Protein 5.4 L D Albumin 2.6 L D HIV 1&2 Ab/P24 Ag 4thGn Microbiology 11/02/17 03:15 Blood - Peripheral Aerobic Blood Culture - Preliminary No growth in 1 day 11/02/17 03:15 Blood - Peripheral Anaerobic Blood Culture - Preliminary No growth in 1 day 11/02/17 03:31 Blood - Peripheral Aerobic Blood Culture - Preliminary No growth in 1 day 11/02/17 03:31 Blood - Peripheral Anaerobic Blood Culture - Preliminary No growth in 1 day - Imaging Chest X-Ray 11/02/17 03:10 CONCLUSION: No acute cardiopulmonary abnormality is identified. Head CT 11/02/17 03:14 CONCLUSION: No acute intracranial abnormality is identified. . - Procedures NONE Assessment and Plan - Plan HIV/AIDS with complete medical noncompliance currently on no medications -Check CD4 counts Rhabdomyolysis found per labs continue on IV fluids wide bicarb IMPROVING WITH FLUIDS History of bipolar History of hypertension Malignant noncompliance-patient is noncompliant with medications CIWA NEEDED MVI THIAMINE FOLIC ACID Tobacco and alcohol abuse and marijuana abuse Continue DVT and GI prophylaxis POSSIBLE BRONCHITIS START MUCINEX AND DUONEBS Code Status: FULL CODE Discussed Condition With: RN AND CM AND PT Discharge Planning: Pending improvement
[2017-11-03] MEDS: oxyCODONE/Acetaminophen 10/325 Tablet PO PRN (20:12)
[2017-11-03] MEDS: guaiFENesin 600 MG ER Tablet PO SCH (20:13)
[2017-11-04] MEDS: Sodium Bicarbonate 8.4% Inj 150 MEQ in Sod Chloride 0.9% Inj 850 ML IV.CONT SCH ×6 (03:37→18:14)
[2017-11-04] MEDS: oxyCODONE/Acetaminophen 10/325 Tablet PO PRN ×4 (03:37→21:57)
[2017-11-04 07:30] LABS: Baso % (Auto) 0.5 % (0.0-2.0); Eos # (Auto) 0.2 th/mm3 (0.0-0.4); Eos % (Auto) 5.7 % (0.0-4.0); Hematocrit 37.8 % (39.0-51.0); Hemoglobin 12.6 gm/dL (13.0-17.0); Lymph # (Auto) 0.9 th/mm3 (1.0-4.8); Lymph % (Auto) 32.8 % (9.0-44.0); Mean Corpuscular HGB Conc 33.2 % (32.0-36.0); Mean Corpuscular Hemoglobin 28.4 pg (27.0-34.0); Mean Corpuscular Volume 85.6 fL (80.0-100.0); Mean Platelet Volume 8.6 fL (7.0-11.0); Mono # (Auto) 0.2 th/mm3 (0.0-0.9); Mono % (Auto) 9.1 % (0.0-8.0); Neut # (Auto) 1.4 th/mm3 (1.8-7.7); Neut % (Auto) 51.9 % (16.0-70.0); Platelet Count 152 th/mm3 (150-450); Red Blood Count 4.42 mil/mm3 (4.50-5.90); Red Cell Distribution Width 12.9 % (11.6-17.2); White Blood Count 2.7 th/mm3 (4.0-11.0)
[2017-11-04 07:57] LABS: Alanine Aminotransferase 15 U/L (12-78); Albumin 2.7 g/dL (3.4-5.0); Anion Gap 6 meq/L (5-15); Aspartate Aminotransferase 21 U/L (15-37); Blood Urea Nitrogen 8 mg/dL (7-18); Calcium 7.5 mg/dL (8.5-10.1); Carbon Dioxide 29.8 meq/L (21.0-32.0); Chloride 109 meq/L (98-107); Glomerular Filtration Rate Greater Than 89 mL/min (>89); Glucose,Random 80 mg/dL (74-106); Magnesium 1.9 mg/dL (1.5-2.5); Phosphorus 2.4 mg/dL (2.5-4.9); Potassium 3.1 meq/L (3.5-5.1); Sodium 145 meq/L (136-145)
[2017-11-04 08:00] LABS: Alkaline Phosphatase 59 U/L (45-117); Creatine Kinase 380 U/L (39-308); Total Protein 5.7 g/dL (6.4-8.2)
[2017-11-04 08:21] LABS: CKMB Percent 0.7 % (0.0-4.0); Creatine Kinase MB 2.6 ng/mL (0.5-3.6)
[2017-11-04] MEDS: Senna/Docusate Sodium 8.6/50 MG Tablet PO SCH ×2 (09:50→21:53)
[2017-11-04] MEDS: guaiFENesin 600 MG ER Tablet PO SCH ×2 (09:51→21:57)
[2017-11-04] MEDS: Enoxaparin Inj 40 MG/0.4 ML Syringe SQ SCH (14:24)
--- NOTE | 2017-11-04 15:28 | P.PNIM ---
Subjective Interval history: Patient is a 42-year-old male who is brought into [facility] emergency department with a history of HIV positive, bipolar disorder, hypertension, and new onset of headache and shortness of breath and a cough for at least a month. Patient has a history of shortness of breath that has been worsening worsens when walking. He felt dizzy and tightness in his chest therefore presented emergency he has had a nonproductive cough and some sore throat. Patient currently states that he is homeless. Has had some headaches on and off that are frontal. He has not taken any medications for his HIV for at least 18+ months if not longer More than likely has HIV and full-blown AIDS We will check CD4 counts Was found to have rhabdomyolysis will start on fluids and will be monitored. 8-5 HAS POSITIVE COUGH AND CONGESTION WILL ADD MUCINEX AND DUONEBS PROBABLY HAS FULL BLOWN AIDS NEEDS PT AND OT 8-6 HAS COUGH AND SORE THROAT DW RN AND PATIENT HAS HX OF HIV AND AIDS CD4 COUNT IS IN 200S STILL FEELS LOUSY HYPOKALEMIA-REPLACE AM LABS ADD ZITHROMAX 500 IV DAILY Physical Exam Vital signs: Vital Signs 11/03/17 16:00 11/03/17 17:35 11/03/17 19:28 Temperature 98.4 F Pulse Rate 63 64 Respiratory Rate 18 18 Blood Pressure 145/84 H Pulse Oximetry 97 94 L 11/03/17 19:44 11/03/17 20:00 11/04/17 00:00 Temperature 98.2 F 97.3 F L Pulse Rate 64 59 L 48 L Respiratory Rate 18 18 Blood Pressure 131/78 136/83 Pulse Oximetry 96 97 11/04/17 04:00 11/04/17 04:25 11/04/17 08:00 Temperature 97.3 F L 98.1 F Pulse Rate 78 60 55 L Respiratory Rate 18 18 17 Blood Pressure 136/83 134/83 Pulse Oximetry 97 96 95 11/04/17 12:00 11/04/17 12:04 Temperature 98.0 F Pulse Rate 60 54 L Respiratory Rate 17 16 Blood Pressure 115/74 Pulse Oximetry 97 98 Intake & Output 11/03/17 11/04/17 11/04/17 18:59 06:59 18:59 Intake Total 1000 / 1000 2980 / 2980 1000 / 1000 Balance 1000 / 1000 2980 / 2980 1000 / 1000 Weight 60.4 kg Intake: IV 1000 / 1000 1999 / 1999 1000 / 1000 Sodium Bicarbonate 8.4% Inj 150 1000 / 1000 1999 / 1999 1000 / 1000 MEQ In NS Inj 850 ML @ 150 mls /hr IV.CONT .Q6H40M [facility] Rx#: [id number] Oral 980 / 980 Other: # Voids 3 Date of Last Bowel Movement 11/03/17 # Bowel Movements 0 Narrative: GENERAL: Thin appearing male. Currently awake alert and oriented 3 talkative and cooperative SKIN: Warm and dry. HEAD: Atraumatic. Normocephalic. EYES: Pupils equal and round. No scleral icterus. No injection or drainage. EOMI ENT: No nasal bleeding or discharge. Mucous membranes pink and moist. Tongue is midline NECK: Trachea midline. No JVD. Supple CARDIOVASCULAR: Regular rate and rhythm. S1-S2 no S3 or S RESPIRATORY: No accessory muscle use. Clear to auscultation. Breath sounds equal bilaterally. GASTROINTESTINAL: Abdomen soft, non-tender, nondistended. Hepatic and splenic margins not palpable. MUSCULOSKELETAL: Extremities without clubbing, cyanosis, or edema. No obvious deformities. NEUROLOGICAL: Awake and alert. No obvious cranial nerve deficits. Motor grossly within normal limits. 4out of 5 muscle strength in the arms and legs. Normal speech. PSYCHIATRIC: Appropriate mood and affect; insight and judgment ABnormal. Results - Labs CBC & Chem 7: 11/04/17 05:55 11/04/17 05:55 Laboratory Results - last 24 hr 11/02/17 11/02/17 11/04/17 13:15 13:15 05:55 WBC RBC Hgb Hct MCV MCH MCHC RDW Plt Count MPV Neut % (Auto) Lymph % (Auto) [place] % (Auto) Eos % (Auto) Baso % (Auto) Neut # (Auto) Lymph # (Auto) [place] # (Auto) Eos # (Auto) Baso # (Auto) WBC Differential Differential Comment Sodium 145 Potassium 3.1 L Chloride 109 H Carbon Dioxide 29.8 Anion Gap 6 BUN 8 Creatinine 0.73 Estimated GFR Greater than 89 Random Glucose 80 Calcium 7.5 L Phosphorus 2.4 L Magnesium 1.9 Total Bilirubin 0.3 AST 21 ALT 15 Alkaline Phosphatase 59 Total Creatine Kinase 380 H CK-MB (CK-2) 2.6 CK-MB (CK-2) % 0.7 Total Protein 5.7 L Albumin 2.7 L Absolute Lymphocytes 854 % CD3 Cells 82 Absolute CD3 Count 702 L % CD3-/CD16+/CD56+ 6 Abs CD3-/CD16+/CD56+ 53 L % CD4 Cells 35 Absolute CD4 Count 287 L T-Help/Suppress Ratio 0.80 L % CD8 Cells 45 H Absolute CD8 Count 371 % CD19 Cells 10 Absolute CD19 Count 87 L HIV-1 Antibody Cancelled HIV-2 Antibody Cancelled HIV (1&2) Ag & Ab Refer Cancelled 11/04/17 05:55 WBC 2.7 L RBC 4.42 L Hgb 12.6 L Hct 37.8 L MCV 85.6 MCH 28.4 MCHC 33.2 RDW 12.9 Plt Count 152 MPV 8.6 Neut % (Auto) 51.9 Lymph % (Auto) 32.8 [place] % (Auto) 9.1 H Eos % (Auto) 5.7 H Baso % (Auto) 0.5 Neut # (Auto) 1.4 L Lymph # (Auto) 0.9 L [place] # (Auto) 0.2 Eos # (Auto) 0.2 Baso # (Auto) 0.0 WBC Differential . Differential Comment Auto diff final Sodium Potassium Chloride Carbon Dioxide Anion Gap BUN Creatinine Estimated GFR Random Glucose Calcium Phosphorus Magnesium Total Bilirubin AST ALT Alkaline Phosphatase Total Creatine Kinase CK-MB (CK-2) CK-MB (CK-2) % Total Protein Albumin Absolute Lymphocytes % CD3 Cells Absolute CD3 Count % CD3-/CD16+/CD56+ Abs CD3-/CD16+/CD56+ % CD4 Cells Absolute CD4 Count T-Help/Suppress Ratio % CD8 Cells Absolute CD8 Count % CD19 Cells Absolute CD19 Count HIV-1 Antibody HIV-2 Antibody HIV (1&2) Ag & Ab Refer Microbiology 11/02/17 03:15 Blood - Peripheral Aerobic Blood Culture - Preliminary No growth in 2 days 11/02/17 03:15 Blood - Peripheral Anaerobic Blood Culture - Preliminary No growth in 2 days 11/02/17 03:31 Blood - Peripheral Aerobic Blood Culture - Preliminary No growth in 2 days 11/02/17 03:31 Blood - Peripheral Anaerobic Blood Culture - Preliminary No growth in 2 days - Imaging Chest X-Ray 11/02/17 03:10 CONCLUSION: No acute cardiopulmonary abnormality is identified. Head CT 11/02/17 03:14 CONCLUSION: No acute intracranial abnormality is identified. . - Procedures NONE Assessment and Plan - Plan HIV/AIDS with complete medical noncompliance currently on no medications -Check CD4 counts Rhabdomyolysis found per labs continue on IV fluids wide bicarb IMPROVING WITH FLUIDS History of bipolar History of hypertension HYPOKALEMIA WILL REPLACE AGAIN Malignant noncompliance-patient is noncompliant with medications CIWA NEEDED MVI THIAMINE FOLIC ACID Tobacco and alcohol abuse and marijuana abuse Continue DVT and GI prophylaxis POSSIBLE BRONCHITIS START MUCINEX AND DUONEBS ADD ZITHROMAX 500MG IV DAILY Code Status: FULL CODE Discussed Condition With: RN AND PT AND CM Discharge Planning: Pending improvement
[2017-11-04] MEDS: Azithromycin Inj 500 MG in Sodium Chlor 0.9% Inj 250 ML IV.SIG SCH (15:46)
[2017-11-04] MEDS: Phenol 1.4% 180 ML Spray Bottle OROPHARYNG PRN ×2 (17:00→21:54)
[2017-11-05] MEDS: Sodium Bicarbonate 8.4% Inj 150 MEQ in Sod Chloride 0.9% Inj 850 ML IV.CONT SCH ×2 (00:04→06:54)
[2017-11-05 07:23] LABS: Baso % (Auto) 0.6 % (0.0-2.0); Eos # (Auto) 0.2 th/mm3 (0.0-0.4); Eos % (Auto) 6.9 % (0.0-4.0); Hematocrit 38.2 % (39.0-51.0); Hemoglobin 12.9 gm/dL (13.0-17.0); Lymph % (Auto) 33.3 % (9.0-44.0); Mean Corpuscular HGB Conc 33.7 % (32.0-36.0); Mean Corpuscular Hemoglobin 28.2 pg (27.0-34.0); Mean Corpuscular Volume 83.6 fL (80.0-100.0); Mean Platelet Volume 8.8 fL (7.0-11.0); Mono # (Auto) 0.2 th/mm3 (0.0-0.9); Mono % (Auto) 8.2 % (0.0-8.0); Neut # (Auto) 1.5 th/mm3 (1.8-7.7); Platelet Count 168 th/mm3 (150-450); Red Blood Count 4.57 mil/mm3 (4.50-5.90); Red Cell Distribution Width 13.3 % (11.6-17.2)
[2017-11-05 07:57] LABS: Alanine Aminotransferase 15 U/L (12-78); Albumin 2.6 g/dL (3.4-5.0); Anion Gap 9 meq/L (5-15); Aspartate Aminotransferase 15 U/L (15-37); Blood Urea Nitrogen 8 mg/dL (7-18); Calcium 7.6 mg/dL (8.5-10.1); Chloride 108 meq/L (98-107); Glomerular Filtration Rate Greater Than 89 mL/min (>89); Glucose,Random 79 mg/dL (74-106); Magnesium 1.9 mg/dL (1.5-2.5); Phosphorus 3.2 mg/dL (2.5-4.9); Potassium 3.9 meq/L (3.5-5.1); Sodium 146 meq/L (136-145)
[2017-11-05 08:00] LABS: Alkaline Phosphatase 58 U/L (45-117); Creatine Kinase 213 U/L (39-308); Total Protein 5.9 g/dL (6.4-8.2)
[2017-11-05 09:19] LABS: Creatine Kinase MB 1.5 ng/mL (0.5-3.6)
[2017-11-05] MEDS: guaiFENesin 600 MG ER Tablet PO SCH ×2 (09:41→21:02)
[2017-11-05] MEDS: Senna/Docusate Sodium 8.6/50 MG Tablet PO SCH ×2 (09:42→21:02)
[2017-11-05] MEDS: oxyCODONE/Acetaminophen 10/325 Tablet PO PRN ×2 (09:49→21:01)
--- NOTE | 2017-11-05 11:08 | P.PNIM ---
Subjective Interval history: Patient is a 42-year-old male who is brought into [facility] emergency department with a history of HIV positive, bipolar disorder, hypertension, and new onset of headache and shortness of breath and a cough for at least a month. Patient has a history of shortness of breath that has been worsening worsens when walking. He felt dizzy and tightness in his chest therefore presented emergency he has had a nonproductive cough and some sore throat. Patient currently states that he is homeless. Has had some headaches on and off that are frontal. He has not taken any medications for his HIV for at least 18+ months if not longer More than likely has HIV and full-blown AIDS We will check CD4 counts Was found to have rhabdomyolysis will start on fluids and will be monitored. 8-5 HAS POSITIVE COUGH AND CONGESTION WILL ADD MUCINEX AND DUONEBS PROBABLY HAS FULL BLOWN AIDS NEEDS PT AND OT 8-6 HAS COUGH AND SORE THROAT DW RN AND PATIENT HAS HX OF HIV AND AIDS CD4 COUNT IS IN 200S STILL FEELS LOUSY HYPOKALEMIA-REPLACE AM LABS ADD ZITHROMAX 500 IV DAILY 8-7 VERY SLOW IMPROVEMENT STILL HAS COUGH FEELS A LITTLE LESS LOUSY Physical Exam Vital signs: Vital Signs 11/04/17 12:00 11/04/17 12:04 11/04/17 16:00 Temperature 98.0 F 97.5 F L Pulse Rate 53 L 54 L 60 Respiratory Rate 17 16 18 Blood Pressure 115/74 119/72 Pulse Oximetry 97 98 99 11/04/17 19:54 11/04/17 20:00 11/05/17 00:00 Temperature 98.1 F 98 F Pulse Rate 67 61 56 L Respiratory Rate 15 18 18 Blood Pressure 130/75 118/65 Pulse Oximetry 97 97 97 11/05/17 03:04 11/05/17 03:52 11/05/17 04:00 Temperature 98.1 F Pulse Rate 60 59 L 63 Respiratory Rate 14 18 Blood Pressure 128/80 Pulse Oximetry 97 11/05/17 06:06 11/05/17 07:38 11/05/17 08:00 Temperature 98.0 F Pulse Rate 64 72 Respiratory Rate 16 17 Blood Pressure 141/84 H Pulse Oximetry 99 98 99 Intake & Output 11/04/17 11/05/17 11/05/17 18:59 06:59 18:59 Intake Total 3090 / 3090 4931 / 4931 Balance 3090 / 3090 4931 / 4931 Weight 60.4 kg Intake: IV 2250 / 2250 1999 Sodium Bicarbonate 8.4% Inj 150 1999 MEQ In NS Inj 850 ML @ 150 mls /hr IV.CONT .Q6H40M [facility] Rx#: [id number] Azithromycin Inj 500 MG In NS 250 / 250 Inj 250 ML @ 250 mls/hr IV.SIG Q24H [facility] Rx#:[id number] Oral 840 / 840 1281 / 1281 Other 1650 / 1650 Other: Other Intake Source Saline Solution # Voids 3 3 Date of Last Bowel Movement 11/03/17 # Bowel Movements 0 0 Narrative: GENERAL: Thin appearing male. Currently awake alert and oriented 3 talkative and cooperative SKIN: Warm and dry. HEAD: Atraumatic. Normocephalic. EYES: Pupils equal and round. No scleral icterus. No injection or drainage. EOMI ENT: No nasal bleeding or discharge. Mucous membranes pink and moist. Tongue is midline NECK: Trachea midline. No JVD. Supple CARDIOVASCULAR: Regular rate and rhythm. S1-S2 no S3 or S RESPIRATORY: No accessory muscle use. Clear to auscultation. Breath sounds equal bilaterally. GASTROINTESTINAL: Abdomen soft, non-tender, nondistended. Hepatic and splenic margins not palpable. MUSCULOSKELETAL: Extremities without clubbing, cyanosis, or edema. No obvious deformities. NEUROLOGICAL: Awake and alert. No obvious cranial nerve deficits. Motor grossly within normal limits. 4out of 5 muscle strength in the arms and legs. Normal speech. PSYCHIATRIC: Appropriate mood and affect; insight and judgment ABnormal. Results - Labs CBC & Chem 7: 11/05/17 06:22 11/05/17 06:22 Laboratory Results - last 24 hr 11/05/17 11/05/17 06:22 06:22 WBC 3.0 L RBC 4.57 Hgb 12.9 L Hct 38.2 L MCV 83.6 MCH 28.2 MCHC 33.7 RDW 13.3 Plt Count 168 MPV 8.8 Neut % (Auto) 51.0 Lymph % (Auto) 33.3 [place] % (Auto) 8.2 H Eos % (Auto) 6.9 H Baso % (Auto) 0.6 Neut # (Auto) 1.5 L Lymph # (Auto) 1.0 [place] # (Auto) 0.2 Eos # (Auto) 0.2 Baso # (Auto) 0.0 WBC Differential . Differential Comment Auto diff final Sodium 146 H Potassium 3.9 D Chloride 108 H Carbon Dioxide 29.0 Anion Gap 9 BUN 8 Creatinine 0.74 Estimated GFR Greater than 89 Random Glucose 79 Calcium 7.6 L Phosphorus 3.2 Magnesium 1.9 Total Bilirubin 0.1 L AST 15 ALT 15 Alkaline Phosphatase 58 Total Creatine Kinase 213 CK-MB (CK-2) 1.5 Total Protein 5.9 L Albumin 2.6 L Microbiology 11/02/17 03:15 Blood - Peripheral Aerobic Blood Culture - Preliminary No growth in 3 days 11/02/17 03:15 Blood - Peripheral Anaerobic Blood Culture - Preliminary No growth in 3 days 11/02/17 03:31 Blood - Peripheral Aerobic Blood Culture - Preliminary No growth in 3 days 11/02/17 03:31 Blood - Peripheral Anaerobic Blood Culture - Preliminary No growth in 3 days - Procedures NONE Assessment and Plan - Plan HIV/AIDS with complete medical noncompliance currently on no medications -Check CD4 counts OF 287 HX OF AIDS Rhabdomyolysis found per labs continue on IV fluids wide bicarb IMPROVING WITH FLUIDS--MUCH IMPROVED- HEPLOCK History of bipolar History of hypertension HYPOKALEMIA WILL REPLACE AGAIN Malignant noncompliance-patient is noncompliant with medications CIWA NEEDED MVI THIAMINE FOLIC ACID Tobacco and alcohol abuse and marijuana abuse Continue DVT and GI prophylaxis POSSIBLE BRONCHITIS START MUCINEX AND DUONEBS ADD ZITHROMAX 500MG IV DAILY Code Status: FULL CODE Discussed Condition With: RN AND PT AND CM Discharge Planning: Pending improvement DC IN NEXT FEW DAYS
[2017-11-05] MEDS: Enoxaparin Inj 40 MG/0.4 ML Syringe SQ SCH (13:50)
[2017-11-05 16:23] LABS: Darunavir w Ritonavir SUSC; Fosamprenavir w Ritonavir SUSC; HIV 1 Genotyping INTERP; Indinavir w Ritonavir SUSC; Lopinavir w Ritonavir SUSC; Nefinavir SUSC; Saquinavir w Ritonavir SUSC; Tipranavir with Ritanavir SUSC
[2017-11-05] MEDS: Azithromycin Inj 500 MG in Sodium Chlor 0.9% Inj 250 ML IV.SIG SCH (17:54)
[2017-11-06] MEDS: guaiFENesin 600 MG ER Tablet PO SCH ×2 (08:51→22:13)
[2017-11-06] MEDS: Senna/Docusate Sodium 8.6/50 MG Tablet PO SCH ×2 (08:51→22:13)
[2017-11-06 09:15] LABS: Baso % (Auto) 0.7 % (0.0-2.0); Eos # (Auto) 0.3 th/mm3 (0.0-0.4); Eos % (Auto) 8.7 % (0.0-4.0); Hematocrit 44.4 % (39.0-51.0); Hemoglobin 14.5 gm/dL (13.0-17.0); Lymph # (Auto) 0.9 th/mm3 (1.0-4.8); Lymph % (Auto) 30.7 % (9.0-44.0); Mean Corpuscular HGB Conc 32.6 % (32.0-36.0); Mean Platelet Volume 8.7 fL (7.0-11.0); Mono # (Auto) 0.3 th/mm3 (0.0-0.9); Mono % (Auto) 9.7 % (0.0-8.0); Neut # (Auto) 1.5 th/mm3 (1.8-7.7); Neut % (Auto) 50.2 % (16.0-70.0); Platelet Count 202 th/mm3 (150-450); Red Blood Count 5.16 mil/mm3 (4.50-5.90)
[2017-11-06] MEDS: oxyCODONE/Acetaminophen 10/325 Tablet PO PRN ×3 (09:29→22:13)
[2017-11-06 09:59] LABS: Alanine Aminotransferase 18 U/L (12-78); Albumin 3.2 g/dL (3.4-5.0); Alkaline Phosphatase 67 U/L (45-117); Anion Gap 9 meq/L (5-15); Aspartate Aminotransferase 17 U/L (15-37); Blood Urea Nitrogen 8 mg/dL (7-18); Calcium 8.9 mg/dL (8.5-10.1); Carbon Dioxide 24.8 meq/L (21.0-32.0); Chloride 107 meq/L (98-107); Creatine Kinase 136 U/L (39-308); Glomerular Filtration Rate Greater Than 89 mL/min (>89); Glucose,Random 78 mg/dL (74-106); Phosphorus 3.6 mg/dL (2.5-4.9); Potassium 3.9 meq/L (3.5-5.1); Sodium 141 meq/L (136-145); Total Protein 6.9 g/dL (6.4-8.2)
[2017-11-06 10:57] LABS: Creatine Kinase MB 1.1 ng/mL (0.5-3.6)
[2017-11-06] MEDS: Enoxaparin Inj 40 MG/0.4 ML Syringe SQ SCH (13:38)
[2017-11-06] MEDS: Azithromycin Inj 500 MG in Sodium Chlor 0.9% Inj 250 ML IV.SIG SCH (15:06)
--- NOTE | 2017-11-06 15:28 | P.PNIM ---
Subjective Interval history: Patient is a 42-year-old male who is brought into [facility] emergency department with a history of HIV positive, bipolar disorder, hypertension, and new onset of headache and shortness of breath and a cough for at least a month. Patient has a history of shortness of breath that has been worsening worsens when walking. He felt dizzy and tightness in his chest therefore presented emergency he has had a nonproductive cough and some sore throat. Patient currently states that he is homeless. Has had some headaches on and off that are frontal. He has not taken any medications for his HIV for at least 18+ months if not longer More than likely has HIV and full-blown AIDS We will check CD4 counts Was found to have rhabdomyolysis will start on fluids and will be monitored. 9-5 HAS POSITIVE COUGH AND CONGESTION WILL ADD MUCINEX AND DUONEBS PROBABLY HAS FULL BLOWN AIDS NEEDS PT AND OT 9-6 HAS COUGH AND SORE THROAT DW RN AND PATIENT HAS HX OF HIV AND AIDS CD4 COUNT IS IN 200S STILL FEELS LOUSY HYPOKALEMIA-REPLACE AM LABS ADD ZITHROMAX 500 IV DAILY 9-7 VERY SLOW IMPROVEMENT STILL HAS COUGH FEELS A LITTLE LESS LOUSY 9-8 STILL HAS COUGH AND CONGESTION WILL GET CHEST XRAY TODAY DW RN AND PT AND CM Physical Exam Vital signs: Vital Signs 11/05/17 16:00 11/05/17 21:05 11/06/17 00:00 Temperature 97.8 F 98.0 F Pulse Rate 62 62 75 Respiratory Rate 17 16 18 Blood Pressure 125/65 116/58 L Pulse Oximetry 97 95 11/06/17 04:00 11/06/17 04:22 11/06/17 08:00 Temperature 98.1 F 97.8 F Pulse Rate 75 54 L 55 L Respiratory Rate 16 14 16 Blood Pressure 110/71 118/71 Pulse Oximetry 96 97 95 11/06/17 08:30 11/06/17 12:00 11/06/17 12:44 Temperature 97.2 F L Pulse Rate 54 L 59 L 54 L Respiratory Rate 14 16 18 Blood Pressure 122/74 Pulse Oximetry 97 98 Intake & Output 11/05/17 11/06/17 11/06/17 18:59 06:59 18:59 Intake Total 250 / 250 1480 / 1480 Balance 250 / 250 1480 / 1480 Weight 62 kg Intake: IV 250 / 250 1000 / 1000 Sodium Bicarbonate 8.4% Inj 150 1000 / 1000 MEQ In NS Inj 850 ML @ 150 mls /hr IV.CONT .Q6H40M [facility] Rx#: [id number] Azithromycin Inj 500 MG In NS 250 / 250 Inj 250 ML @ 250 mls/hr IV.SIG Q24H [facility] Rx#:[id number] Oral 480 / 480 Other: # Voids 3 Date of Last Bowel Movement 11/04/17 Narrative: GENERAL: Thin appearing male. Currently awake alert and oriented 3 talkative and cooperative SKIN: Warm and dry. HEAD: Atraumatic. Normocephalic. EYES: Pupils equal and round. No scleral icterus. No injection or drainage. EOMI ENT: No nasal bleeding or discharge. Mucous membranes pink and moist. Tongue is midline NECK: Trachea midline. No JVD. Supple CARDIOVASCULAR: Regular rate and rhythm. S1-S2 no S3 or S RESPIRATORY: No accessory muscle use. Clear to auscultation. Breath sounds equal bilaterally. GASTROINTESTINAL: Abdomen soft, non-tender, nondistended. Hepatic and splenic margins not palpable. MUSCULOSKELETAL: Extremities without clubbing, cyanosis, or edema. No obvious deformities. NEUROLOGICAL: Awake and alert. No obvious cranial nerve deficits. Motor grossly within normal limits. 4out of 5 muscle strength in the arms and legs. Normal speech. PSYCHIATRIC: Appropriate mood and affect; insight and judgment ABnormal. Results - Labs CBC & Chem 7: 11/06/17 07:40 11/06/17 07:40 Laboratory Results - last 24 hr 11/02/17 11/06/17 11/06/17 13:15 07:40 07:40 WBC 3.0 L RBC 5.16 Hgb 14.5 Hct 44.4 MCV 86.0 MCH 28.0 MCHC 32.6 RDW 13.0 Plt Count 202 MPV 8.7 Neut % (Auto) 50.2 Lymph % (Auto) 30.7 [place] % (Auto) 9.7 H Eos % (Auto) 8.7 H Baso % (Auto) 0.7 Neut # (Auto) 1.5 L Lymph # (Auto) 0.9 L [place] # (Auto) 0.3 Eos # (Auto) 0.3 Baso # (Auto) 0.0 WBC Differential . Differential Comment Auto diff final Sodium 141 Potassium 3.9 Chloride 107 Carbon Dioxide 24.8 Anion Gap 9 BUN 8 Creatinine 0.86 Estimated GFR Greater than 89 Random Glucose 78 Calcium 8.9 D Phosphorus 3.6 Magnesium 2.0 Total Bilirubin 0.2 AST 17 ALT 18 Alkaline Phosphatase 67 Total Creatine Kinase 136 CK-MB (CK-2) 1.1 Total Protein 6.9 D Albumin 3.2 L D HIV-1 Genotyping Interp HIV Zidovudine Resist Susc HIV Stavudine Resist Susc HIV Lamivudine Resist Susc HIV Didanosine Resist Susc HIV Tenofovir Resist Susc HIV Abacavir Resist Susc HIV Efavirenz Resist Susc HIV Nevirapine Resist Susc HIV Etravirine Resist Susc HIV Nucleos RT Inhibit See below Non-Nucl RT Inhibitors See below Assoc Protease Mutation See below Fosamprenavir Resist Susc Atazanavir w Ritonavir Susc Indinavir w Ritonavir Susc HIV Nelfinavir Resist Susc Lopinavir w Ritonavir Susc HIV Rilpivirine Resist Susc Saquinavir w Ritonavir Susc Tipranavir w Ritonavir Susc Darunavir w Ritonavir Susc Emtricitabine Resis Susc Microbiology 11/02/17 03:15 Blood - Peripheral Aerobic Blood Culture - Preliminary No growth in 4 days 11/02/17 03:15 Blood - Peripheral Anaerobic Blood Culture - Preliminary No growth in 4 days 11/02/17 03:31 Blood - Peripheral Aerobic Blood Culture - Preliminary No growth in 4 days 11/02/17 03:31 Blood - Peripheral Anaerobic Blood Culture - Preliminary No growth in 4 days - Imaging Chest X-Ray 11/02/17 03:10 CONCLUSION: No acute cardiopulmonary abnormality is identified. Head CT 11/02/17 03:14 CONCLUSION: No acute intracranial abnormality is identified. . - Procedures NONE Assessment and Plan - Plan HIV/AIDS with complete medical noncompliance currently on no medications -Check CD4 counts OF 287 HX OF AIDS Rhabdomyolysis found per labs continue on IV fluids wide bicarb IMPROVING WITH FLUIDS--MUCH IMPROVED- HEPLOCK History of bipolar History of hypertension HYPOKALEMIA WILL REPLACE AGAIN Malignant noncompliance-patient is noncompliant with medications CIWA NEEDED MVI THIAMINE FOLIC ACID Tobacco and alcohol abuse and marijuana abuse Continue DVT and GI prophylaxis POSSIBLE BRONCHITIS START MUCINEX AND DUONEBS ADD ZITHROMAX 500MG IV DAILY AND BACTRIM DS WILL GET CHEST XRAY Code Status: FULL CODE Discussed Condition With: RN AND PT AND CM Discharge Planning: Pending improvement DC IN NEXT FEW DAYS
--- NOTE | 2017-11-06 16:42 | XR ---
EXAM DATE: 11/06/2017 4:40 PM EDT AGE/SEX: 42 years / Male INDICATIONS: . Chest pain. CLINICAL DATA: This is the patient's initial encounter. Patient reports that signs and symptoms have been present for 4 - 6 days and indicates a pain score of 4/10. MEDICAL/SURGICAL HISTORY: None. None. COMPARISON: [facility] [place], CHEST 1V SINGLE AP, 11/02/2017. . FINDINGS: PA and lateral views of the chest demonstrate the lungs to be symmetrically aerated without evidence of mass, infiltrate or effusion. The cardiomediastinal contours are unremarkable. Osseous structures are intact. CONCLUSION: Negative examination. Electronically signed by: Princess Arthur MD 11/06/2017 4:41 PM EDT
[2017-11-07] MEDS: oxyCODONE/Acetaminophen 10/325 Tablet PO PRN (05:30)
[2017-11-07] MEDS: guaiFENesin 600 MG ER Tablet PO SCH (08:51)
[2017-11-07] MEDS: Senna/Docusate Sodium 8.6/50 MG Tablet PO SCH (08:52)
--- NOTE | 2017-11-07 11:34 | P.PNIM ---
Subjective Interval history: Patient is a 42-year-old male who is brought into [facility] emergency department with a history of HIV positive, bipolar disorder, hypertension, and new onset of headache and shortness of breath and a cough for at least a month. Patient has a history of shortness of breath that has been worsening worsens when walking. He felt dizzy and tightness in his chest therefore presented emergency he has had a nonproductive cough and some sore throat. Patient currently states that he is homeless. Has had some headaches on and off that are frontal. He has not taken any medications for his HIV for at least 18+ months if not longer More than likely has HIV and full-blown AIDS We will check CD4 counts Was found to have rhabdomyolysis will start on fluids and will be monitored. 9-5 HAS POSITIVE COUGH AND CONGESTION WILL ADD MUCINEX AND DUONEBS PROBABLY HAS FULL BLOWN AIDS NEEDS PT AND OT 9-6 HAS COUGH AND SORE THROAT DW RN AND PATIENT HAS HX OF HIV AND AIDS CD4 COUNT IS IN 200S STILL FEELS LOUSY HYPOKALEMIA-REPLACE AM LABS ADD ZITHROMAX 500 IV DAILY 9-7 VERY SLOW IMPROVEMENT STILL HAS COUGH FEELS A LITTLE LESS LOUSY 9-8 STILL HAS COUGH AND CONGESTION WILL GET CHEST XRAY TODAY DW RN AND PT AND CM 9-9 BREATHING BETTER WILL DC TO HOME TODAY Physical Exam Vital signs: Vital Signs 11/06/17 12:00 11/06/17 12:44 11/06/17 15:50 Temperature 97.2 F L Pulse Rate 59 L 54 L 56 L Respiratory Rate 16 18 Blood Pressure 122/74 Pulse Oximetry 98 11/06/17 16:00 11/06/17 19:02 11/06/17 19:30 Temperature 97.7 F Pulse Rate 65 74 66 Respiratory Rate 16 Blood Pressure 110/68 Pulse Oximetry 98 11/06/17 20:00 11/06/17 20:17 11/07/17 00:00 Temperature 97.3 F L 97.7 F Pulse Rate 93 H 70 60 Respiratory Rate 21 16 21 Blood Pressure 119/58 L 125/57 L Pulse Oximetry 96 97 11/07/17 04:00 11/07/17 08:00 Temperature 97.5 F L 97.8 F Pulse Rate 65 64 Respiratory Rate 18 16 Blood Pressure 111/59 L 106/64 Pulse Oximetry 98 95 Intake & Output 11/06/17 11/07/17 11/07/17 18:59 06:59 18:59 Intake Total 250 / 250 960 / 960 Balance 250 / 250 960 / 960 Weight 61.8 kg Intake: IV 250 / 250 Azithromycin Inj 500 MG In NS 250 / 250 Inj 250 ML @ 250 mls/hr IV.SIG Q24H [facility]MM Rx#:[id number] Oral 960 / 960 Other: # Voids 4 Date of Last Bowel Movement 11/06/17 Narrative: GENERAL: Thin appearing male. Currently awake alert and oriented 3 talkative and cooperative SKIN: Warm and dry. HEAD: Atraumatic. Normocephalic. EYES: Pupils equal and round. No scleral icterus. No injection or drainage. EOMI ENT: No nasal bleeding or discharge. Mucous membranes pink and moist. Tongue is midline NECK: Trachea midline. No JVD. Supple CARDIOVASCULAR: Regular rate and rhythm. S1-S2 no S3 or S RESPIRATORY: No accessory muscle use. Clear to auscultation. Breath sounds equal bilaterally. GASTROINTESTINAL: Abdomen soft, non-tender, nondistended. Hepatic and splenic margins not palpable. MUSCULOSKELETAL: Extremities without clubbing, cyanosis, or edema. No obvious deformities. NEUROLOGICAL: Awake and alert. No obvious cranial nerve deficits. Motor grossly within normal limits. 4out of 5 muscle strength in the arms and legs. Normal speech. PSYCHIATRIC: Appropriate mood and affect; insight and judgment ABnormal. Results - Labs CBC & Chem 7: 11/06/17 07:40 11/06/17 07:40 Microbiology 11/02/17 03:15 Blood - Peripheral Aerobic Blood Culture - Final No growth in 5 days 11/02/17 03:15 Blood - Peripheral Anaerobic Blood Culture - Final No growth in 5 days 11/02/17 03:31 Blood - Peripheral Aerobic Blood Culture - Final No growth in 5 days 11/02/17 03:31 Blood - Peripheral Anaerobic Blood Culture - Final No growth in 5 days - Imaging Impressions Chest X-Ray 11/06/17 00:00 CONCLUSION: Negative examination. - Procedures NONE Assessment and Plan - Plan HIV/AIDS with complete medical noncompliance currently on no medications -Check CD4 counts OF 287 HX OF AIDS Rhabdomyolysis found per labs continue on IV fluids wide bicarb IMPROVING WITH FLUIDS--MUCH IMPROVED- HEPLOCK History of bipolar History of hypertension HYPOKALEMIA WILL REPLACE AGAIN Malignant noncompliance-patient is noncompliant with medications CIWA NEEDED MVI THIAMINE FOLIC ACID Tobacco and alcohol abuse and marijuana abuse Continue DVT and GI prophylaxis POSSIBLE BRONCHITIS START MUCINEX AND DUONEBS ADD ZITHROMAX 500MG IV DAILY AND BACTRIM DS REPEAT CHEST XRAY WAS STABLE Code Status: FULL CODE Discussed Condition With: RN AND PT AND CM Discharge Planning: Pending improvement DC TO HOME TODAY
--- NOTE | 2017-11-07 11:37 | P.AMA ---
AMA Note - AMA Note Recommended Treatment Course: Follow-up with PCP stop smoking stop drinking taking medication Follow-up with health department/PCP AMA Statement: Patient Chevy Escobar has decided to leave the hospital against medical advice. This patient has the capacity to refuse care and understands the risks of leaving, including permanent disability and/or , and has had an opportunity to ask questions about his/her condition. The patient has been informed that he/she may return for care at any time, and follow up has been arranged/advised. - AMA Note Discharge Disposition: Left Against Medical Advice Patient Condition on Discharge: Good
--- NOTE | 2017-11-07 11:41 | P.DS ---
Date of admission: 11/02/17 06:13 Primary care physician: No Primary Care Physician Attending physician on discharge: Rajinder Osorio Anticipated date of discharge: 11/07/17 Brief History from admission: Patient is a 42-year-old male who is brought into [facility] emergency department with a history of HIV positive, bipolar disorder, hypertension, and new onset of headache and shortness of breath and a cough for at least a month. Patient has a history of shortness of breath that has been worsening worsens when walking. He felt dizzy and tightness in his chest therefore presented emergency he has had a nonproductive cough and some sore throat. Patient currently states that he is homeless. Has had some headaches on and off that are frontal. He has not taken any medications for his HIV for at least 18+ months if not longer More than likely has HIV and full-blown AIDS We will check CD4 counts Was found to have rhabdomyolysis will start on fluids and will be monitored. Patient update on day of discharge: PATIENT DECIDED TO LEAVE [place] BEFORE PAPERWORK WAS DONE DS: Diagnosis - Discharge Diagnosis (1) HIV (human immunodeficiency virus infection) Status: Chronic (2) AIDS Status: Chronic (3) Noncompliance Status: Chronic (4) Bronchitis Status: Acute (5) Rhabdomyolysis Status: Resolved DS: Summary Hospital Course: Patient is a 42-year-old male who is brought into [facility] emergency department with a history of HIV positive, bipolar disorder, hypertension, and new onset of headache and shortness of breath and a cough for at least a month. Patient has a history of shortness of breath that has been worsening worsens when walking. He felt dizzy and tightness in his chest therefore presented emergency he has had a nonproductive cough and some sore throat. Patient currently states that he is homeless. Has had some headaches on and off that are frontal. He has not taken any medications for his HIV for at least 18+ months if not longer More than likely has HIV and full-blown AIDS We will check CD4 counts Was found to have rhabdomyolysis will start on fluids and will be monitored. 9-5 HAS POSITIVE COUGH AND CONGESTION WILL ADD MUCINEX AND DUONEBS PROBABLY HAS FULL BLOWN AIDS NEEDS PT AND OT 9-6 HAS COUGH AND SORE THROAT DW RN AND PATIENT HAS HX OF HIV AND AIDS CD4 COUNT IS IN 200S STILL FEELS LOUSY HYPOKALEMIA-REPLACE AM LABS ADD ZITHROMAX 500 IV DAILY 9-7 VERY SLOW IMPROVEMENT STILL HAS COUGH FEELS A LITTLE LESS LOUSY 9-8 STILL HAS COUGH AND CONGESTION WILL GET CHEST XRAY TODAY DW RN AND PT AND CM PATIENT LEFT AMA - Time Spent with Patient Total time spent providing and/or coordinating discharge services: Less than 30 minutes - Quality: VTE Deep Vein Thrombosis/Pulmonary Embolism Present on Admission: No Exam Vital signs: Vital Signs 11/06/17 12:00 11/06/17 12:44 11/06/17 15:50 Temperature 97.2 F L Pulse Rate 59 L 54 L 56 L Respiratory Rate 16 18 Blood Pressure 122/74 Pulse Oximetry 98 11/06/17 16:00 11/06/17 19:02 11/06/17 19:30 Temperature 97.7 F Pulse Rate 65 74 66 Respiratory Rate 16 Blood Pressure 110/68 Pulse Oximetry 98 11/06/17 20:00 11/06/17 20:17 11/07/17 00:00 Temperature 97.3 F L 97.7 F Pulse Rate 93 H 70 60 Respiratory Rate 21 16 21 Blood Pressure 119/58 L 125/57 L Pulse Oximetry 96 97 11/07/17 04:00 11/07/17 08:00 Temperature 97.5 F L 97.8 F Pulse Rate 65 64 Respiratory Rate 18 16 Blood Pressure 111/59 L 106/64 Pulse Oximetry 98 95 Intake & Output 11/06/17 11/07/17 11/07/17 18:59 06:59 18:59 Intake Total 250 / 250 960 / 960 Balance 250 / 250 960 / 960 Weight 61.8 kg Intake: IV 250 / 250 Azithromycin Inj 500 MG In NS 250 / 250 Inj 250 ML @ 250 mls/hr IV.SIG Q24H [facility]MM Rx#:[id number] Oral 960 / 960 Other: # Voids 4 Date of Last Bowel Movement 11/06/17 Narrative: GENERAL: Thin appearing male. Currently awake alert and oriented 3 talkative and cooperative SKIN: Warm and dry. HEAD: Atraumatic. Normocephalic. EYES: Pupils equal and round. No scleral icterus. No injection or drainage. EOMI ENT: No nasal bleeding or discharge. Mucous membranes pink and moist. Tongue is midline NECK: Trachea midline. No JVD. Supple CARDIOVASCULAR: Regular rate and rhythm. S1-S2 no S3 or S RESPIRATORY: No accessory muscle use. Clear to auscultation. Breath sounds equal bilaterally. GASTROINTESTINAL: Abdomen soft, non-tender, nondistended. Hepatic and splenic margins not palpable. MUSCULOSKELETAL: Extremities without clubbing, cyanosis, or edema. No obvious deformities. NEUROLOGICAL: Awake and alert. No obvious cranial nerve deficits. Motor grossly within normal limits. 4out of 5 muscle strength in the arms and legs. Normal speech. PSYCHIATRIC: Appropriate mood and affect; insight and judgment ABnormal. Results Procedures completed during hospitalization: NONE Completed studies during hospitalization: Laboratory Results WBC 3.0 th/mm3 (4.0-11.0) L 11/06/17 07:40 RBC 5.16 mil/mm3 (4.50-5.90) 11/06/17 07:40 Hgb 14.5 gm/dL (13.0-17.0) 11/06/17 07:40 Hct 44.4 % (39.0-51.0) 11/06/17 07:40 MCV 86.0 fL (80.0-100.0) 11/06/17 07:40 MCH 28.0 pg (27.0-34.0) 11/06/17 07:40 MCHC 32.6 % (32.0-36.0) 11/06/17 07:40 RDW 13.0 % (11.6-17.2) 11/06/17 07:40 Plt Count 202 th/mm3 (150-450) 11/06/17 07:40 MPV 8.7 fL (7.0-11.0) 11/06/17 07:40 Neut % (Auto) 50.2 % (16.0-70.0) 11/06/17 07:40 Lymph % (Auto) 30.7 % (9.0-44.0) 11/06/17 07:40 [place] % (Auto) 9.7 % (0.0-8.0) H 11/06/17 07:40 Eos % (Auto) 8.7 % (0.0-4.0) H 11/06/17 07:40 Baso % (Auto) 0.7 % (0.0-2.0) 11/06/17 07:40 Neut # (Auto) 1.5 th/mm3 (1.8-7.7) L 11/06/17 07:40 Lymph # (Auto) 0.9 th/mm3 (1.0-4.8) L 11/06/17 07:40 [place] # (Auto) 0.3 th/mm3 (0.0-0.9) 11/06/17 07:40 Eos # (Auto) 0.3 th/mm3 (0.0-0.4) 11/06/17 07:40 Baso # (Auto) 0.0 th/mm3 (0.0-0.2) 11/06/17 07:40 WBC Differential . 11/06/17 07:40 Differential Comment Auto diff final 11/06/17 07:40 PT 10.4 sec (9.8-11.6) 11/03/17 07:53 INR 1.0 Ratio 11/03/17 07:53 APTT 26.6 sec (24.3-30.1) 11/02/17 03:25 Sodium 141 meq/L (136-145) 11/06/17 07:40 Potassium 3.9 meq/L (3.5-5.1) 11/06/17 07:40 Chloride 107 meq/L (98-107) 11/06/17 07:40 Carbon Dioxide 24.8 meq/L (21.0-32.0) 11/06/17 07:40 Anion Gap 9 meq/L (5-15) 11/06/17 07:40 BUN 8 mg/dL (7-18) 11/06/17 07:40 Creatinine 0.86 mg/dL (0.60-1.30) 11/06/17 07:40 Estimated GFR Greater than 89 mL/min (>89) 11/06/17 07:40 Random Glucose 78 mg/dL (74-106) 11/06/17 07:40 Hemoglobin A1c 5.3 % (4.3-6.0) 11/02/17 13:15 Lactic Acid 0.5 mmol/L (0.4-2.0) 11/02/17 03:32 Calcium 8.9 mg/dL (8.5-10.1) D 11/06/17 07:40 Phosphorus 3.6 mg/dL (2.5-4.9) 11/06/17 07:40 Magnesium 2.0 mg/dL (1.5-2.5) 11/06/17 07:40 Total Bilirubin 0.2 mg/dL (0.2-1.0) 11/06/17 07:40 AST 17 U/L (15-37) 11/06/17 07:40 ALT 18 U/L (12-78) 11/06/17 07:40 Alkaline Phosphatase 67 U/L (45-117) 11/06/17 07:40 Total Creatine Kinase 136 U/L (39-308) 11/06/17 07:40 CK-MB (CK-2) 1.1 ng/mL (0.5-3.6) 11/06/17 07:40 CK-MB (CK-2) % 0.7 % (0.0-4.0) 11/04/17 05:55 Troponin I Less than 0.02 ng/mL (0.02-0.05) L 11/02/17 03:25 B-Natriuretic Peptide Less than 2 pg/mL (0-100) 11/02/17 03:25 Total Protein 6.9 g/dL (6.4-8.2) D 11/06/17 07:40 Albumin 3.2 g/dL (3.4-5.0) L D 11/06/17 07:40 Lipase 124 U/L (73-393) 11/02/17 03:25 TSH 0.740 uIU/mL (0.358-3.740) 11/02/17 13:04 Free T4 1.04 ng/dL (0.76-1.46) 11/02/17 13:15 Serum Alcohol Less than 3 mg/dL (0-5) 11/02/17 03:25 Absolute Lymphocytes 854 cells/uL (850-3900) 11/02/17 13:15 % CD3 Cells 82 % (57-85) 11/02/17 13:15 Absolute CD3 Count 702 /uL (840-3060) L 11/02/17 13:15 % CD3-/CD16+/CD56+ 6 % (4-25) 11/02/17 13:15 Abs CD3-/CD16+/CD56+ 53 cells/uL (70-760) L 11/02/17 13:15 % CD4 Cells 35 % (30-61) 11/02/17 13:15 Absolute CD4 Count 287 cells/uL (490-1740) L 11/02/17 13:15 T-Help/Suppress Ratio 0.80 (0.86-5.00) L 11/02/17 13:15 % CD8 Cells 45 % (12-42) H 11/02/17 13:15 Absolute CD8 Count 371 cells/uL (180-1170) 11/02/17 13:15 % CD19 Cells 10 % (6-29) 11/02/17 13:15 Absolute CD19 Count 87 cells/uL (110-660) L 11/02/17 13:15 HIV-1 Antibody Cancelled 11/02/17 13:15 HIV-1 Genotyping Inter 11/02/17 13:15 HIV Zidovudine Resist [facility] [place] 11/02/17 13:15 HIV Stavudine Resist [facility] [place] 11/02/17 13:15 HIV Lamivudine Resist [facility] [place] 11/02/17 13:15 HIV Didanosine Resist [facility] [place] 11/02/17 13:15 HIV Tenofovir Resist [facility] [place] 11/02/17 13:15 HIV Abacavir Resist [facility] [place] 11/02/17 13:15 HIV Efavirenz Resist [facility] [place] 11/02/17 13:15 HIV Nevirapine Resist [facility] [place] 11/02/17 13:15 HIV Etravirine Resist [facility] [place] 11/02/17 13:15 HIV Nucleos RT Inhibit See below 11/02/17 13:15 Non-Nucl RT Inhibitors See below 11/02/17 13:15 Assoc Protease Mutation See below 11/02/17 13:15 Fosamprenavir Resist [facility] [place] 11/02/17 13:15 Atazanavir w Ritonavir [facility] [place] 11/02/17 13:15 Indinavir w Ritonavir [facility] [place] 11/02/17 13:15 HIV Nelfinavir Resist [facility] [place] 11/02/17 13:15 Lopinavir w Ritonavir [facility] [place] 11/02/17 13:15 HIV Rilpivirine Resist [facility] [place] 11/02/17 13:15 Saquinavir w Ritonavir [facility] [place] 11/02/17 13:15 Tipranavir w Ritonavir [facility] [place] 11/02/17 13:15 Darunavir w Ritonavir [facility] [place] 11/02/17 13:15 HIV-2 Antibody Cancelled 11/02/17 13:15 HIV (1&2) Ag & Ab Refer Cancelled 11/02/17 13:15 HIV 1&2 Ab/P24 Ag 4thGn Reflex (Nonreactive) H 11/02/17 13:15 Emtricitabine Resis Susc 11/02/17 13:[address] 11/02/17 03:14 CONCLUSION: No acute intracranial abnormality is identified. . Chest X-Ray 11/06/17 00:00 CONCLUSION: Negative examination. - Impressions ITS Impressions Head CT 11/02/17 03:14 CONCLUSION: No acute intracranial abnormality is identified. . Chest X-Ray 11/06/17 00:00 CONCLUSION: Negative examination. Discharge Plan - Discharge Disposition Patient Disposition: Left Against Medical Advice - Discharge Condition Condition: Good - Discharge Order Discharge Orders: AMA Discharge (Routine); Ordered 11/07/17 Ordered By: Rajindre Osorio Discharge Order (Routine); Ordered 11/07/17 Ordered By: Rajinder Osorio - Discharge Details Anticipated Discharge Date: 11/07/17 Discharge Comment: LEFT AMA - Physicians Team Primary Care Provider: Primary Care Preeti,Gloria Attending Provider: Rajinder Osorio
[2017-11-08 13:01] LABS: HIV 1 Antibody Positive (Negative); HIV 2 Antibody Negative (Negative)
== END 2017-11-07 15:09 | disposition left against medical advice (07) ==
LOC: NEDA 02:17 → NEPE 02:17 → N04 06:11
PROVIDERS: ADMIT Hospitalist; ATTEND Hospitalist

== ENCOUNTER 2018-02-26 14:56 | Inpatient (IN) ==
[2018-02-26] MEDS ORDERED: Sod Chloride 0.9% Inj 1,000 ML IV.SIG SCH (15:30)
--- NOTE | 2018-02-26 15:47 | ED ---
HPI General Chief Complaint: Respiratory Symptoms Stated Complaint: SOB X4Days Time Seen by Provider: 02/26/18 15:30 History of Present Illness HPI Narrative: The patient is a 42-year-old white male who presents with 4-day history of shortness of breath, cough, headache, fever, chills/sweats, and nausea. He also reports pain in his ribs when he coughs. He has not vomited but is coughing up some phlegm. He has a known history of HIV and is not taking medication. He states that he does not want to prolong the inevitable and decided to stop taking medications after 13 years. He has had two episodes of pneumonia in the past year, the most recent in October. He decided to come to the ED today because he felt dizzy upon standing and is very weak. He also reports sinus congestion. He has not eaten much food in the past 4 days and reports excessive alcohol consumption. Currently he is living with some of his friends and works in [employer]. Modifying Factors: None Associated Signs & Symptoms: Shortness of breath, cough, fever, chills, sweats, headache, musculoskeletal chest pain, known history of HIV Risk Factors: HIV positive Related Data Home Medications Medication Instructions Recorded Confirmed No Known Home Medications 11/03/17 02/26/18 Allergies Allergy/AdvReac Type Severity Reaction Status Date / Time No Known Allergies Allergy Verified 02/26/18 15:10 Review of Systems Constitutional Reports system reviewed and no additional complaints, except as docu [facility] Social History Social History Substance History: Past History Second Hand Smoke Exposure: No Smoking Status: Never smoker Tobacco Type: Cigarettes Packs Per Day: 1 Cigarettes Per Day: 20.0 How Often Do You Have a Drink Containing Alcohol: 4 or more times a week Hx Recent Travel: No Recent Travel in [facility] within the Last 8 Weeks: No Recent Out of Country Travel within the Last 8 Weeks: No Substance Abuse Detail Alcohol: Substance Use Status: Active Route Used Substance Abuse: By Mouth Immunization History Tetanus Immunization: >5 Years Exam Narrative Exam Narrative: GENERAL: 42-year-old male, appears frail and thin, in mild distress SKIN: Focused skin assessment warm/dry. HEAD: Atraumatic. Normocephalic. EYES: Pupils equal and round. No scleral icterus. No injection or drainage. ENT: No nasal bleeding or discharge. Mucous membranes pink and moist. Mild erythema of the throat NECK: Trachea midline. No JVD. CARDIOVASCULAR: Regular rate and rhythm. No murmur appreciated. RESPIRATORY: No accessory muscle use. Breath sounds coarse on auscultation. Breath sounds equal bilaterally. GASTROINTESTINAL: Abdomen soft, non-tender, nondistended. Hepatic and splenic margins not palpable. MUSCULOSKELETAL: No obvious deformities. No clubbing. No cyanosis. No edema. Tenderness to palpation of the chest NEUROLOGICAL: Awake and alert. No obvious cranial nerve deficits. Motor grossly within normal limits. Normal speech. PSYCHIATRIC: Appropriate mood and affect; insight and judgment normal. Course Initial Documented Vital Signs Temperature 97.6 F 02/26/18 15:01 Pulse Rate 133 H 02/26/18 15:01 Respiratory Rate 20 02/26/18 15:01 Blood Pressure 125/72 02/26/18 15:01 Pulse Oximetry 100 02/26/18 15:01 Last Documented Vital Signs Temperature 98.6 F 02/26/18 16:51 Pulse Rate 102 H 02/26/18 16:51 Respiratory Rate 18 02/26/18 16:31 Blood Pressure 125/72 02/26/18 15:01 Pulse Oximetry 99 02/26/18 16:51 Medical Decision Making MDM Narrative Medical decision making narrative: Chest x-ray did not show signs of obvious lobar pneumonia. Patient was given some nebulizers in the ER. Lab work indicates significant lactate elevations of 2.4. IV fluids, IV antibiotics with Bactrim was initiated in the ER due to concerns of HIV and immune compromise, for coverage for PCP as well. At this point, plan would be to admit the patient for further treatment. Case is discussed with Dr. Alexander for admission. Medical Screen Exam Complete: Yes Emergency Medical Condition: Yes Differential Diagnosis Differential Diagnosis: Pneumonia versus PCP pneumonia versus bronchitis versus COPD exacerbation Lab Data Lab results reviewed: Yes I reviewed the patient's lab results. Result diagrams: 02/26/18 15:45 02/26/18 15:45 Lab Results 02/26/18 02/26/18 02/26/18 Range/Units 15:45 15:45 15:45 CBC w Diff Auto diff final WBC 4.0 (4.0-11.0) th/mm3 RBC 5.61 (4.50-5.90) mil/mm3 Hgb 15.7 (13.0-17.0) gm/dL Hct 46.8 (39.0-51.0) % MCV 83.5 (80.0-100.0) fL MCH 27.9 (27.0-34.0) pg MCHC 33.4 (32.0-36.0) % RDW 12.4 (11.6-17.2) % Plt Count 215 (150-450) th/mm3 MPV 8.5 (7.0-11.0) fL Neut % (Auto) 62.7 (16.0-70.0) % Lymph % (Auto) 21.8 (9.0-44.0) % [place] % (Auto) 11.0 H (0.0-8.0) % Eos % (Auto) 3.0 (0.0-4.0) % Baso % (Auto) 1.5 (0.0-2.0) % Neut # (Auto) 2.5 (1.8-7.7) th/mm3 Lymph # (Auto) 0.9 L (1.0-4.8) th/mm3 [place] # (Auto) 0.4 (0.0-0.9) th/mm3 Eos # (Auto) 0.1 (0.0-0.4) th/mm3 Baso # (Auto) 0.1 (0.0-0.2) th/mm3 WBC Differential . Differential Comment . Sodium 136 (136-145) meq/L Potassium 3.6 (3.5-5.1) meq/L Chloride 101 (98-107) meq/L Carbon Dioxide 24.3 (21.0-32.0) meq/L Anion Gap 11 (5-15) meq/L BUN 19 H (7-18) mg/dL Creatinine 1.10 (0.60-1.30) mg/dL Estimated GFR 73 L (>89) mL/min Random Glucose 82 (74-106) mg/dL Lactic Acid 2.4 H (0.4-2.0) mmol/L Calcium 9.3 (8.5-10.1) mg/dL Total Bilirubin 0.4 (0.2-1.0) mg/dL AST 20 (15-37) U/L ALT 14 (12-78) U/L Alkaline Phosphatase 77 (45-117) U/L Total Protein 8.3 H (6.4-8.2) g/dL Albumin 4.0 (3.4-5.0) g/dL Imaging Data Attestation: I personally reviewed and interpreted this imaging study as follows : Radiologist's impression: Chest X-Ray 02/26/18 15:30 CONCLUSION: Hyperinflated lungs. No evidence of acute airspace disease Discharge Plan Discharge Disposition Patient Disposition: ED Admit(ED Internal Use Only) Discharge Condition Condition: Stable Discharge Order Discharge Orders: ED Use Only Admit Order (Routine); Ordered 02/26/18 Ordered By: Javed Leslie Discharge Details Anticipated Discharge Date: 02/26/18 Diagnosis: Pneumonia Physicians Team ED Provider: Javed Leslie Primary Care Provider: Primary Care Allai,Gloria Rxs /Orders / Referrals /Forms Prescriptions: No Action No Known Home Medications RF: 0 Discharge Interventions Interventions: Vital Signs Last Done: 02/26/18 16:51 Status ED Status: Admitted Patient
[2018-02-26] MEDS ORDERED: TRIMETHOPRIM IV.SIG ONE ×2 (15:52)
[2018-02-26] MEDS ORDERED: DEXTROSE 5% IV.SIG ONE ×2 (15:52)
[2018-02-26] MEDS ORDERED: WATER IV.SIG ONE ×2 (15:52)
[2018-02-26] MEDS ORDERED: SULFAMETHOX IV.SIG ONE ×2 (15:52)
[2018-02-26 16:04] LABS: Baso # (Auto) 0.1 th/mm3 (0.0-0.2); Baso % (Auto) 1.5 % (0.0-2.0); Eos # (Auto) 0.1 th/mm3 (0.0-0.4); Hematocrit 46.8 % (39.0-51.0); Hemoglobin 15.7 gm/dL (13.0-17.0); Lymph # (Auto) 0.9 th/mm3 (1.0-4.8); Lymph % (Auto) 21.8 % (9.0-44.0); Mean Corpuscular HGB Conc 33.4 % (32.0-36.0); Mean Corpuscular Hemoglobin 27.9 pg (27.0-34.0); Mean Corpuscular Volume 83.5 fL (80.0-100.0); Mean Platelet Volume 8.5 fL (7.0-11.0); Mono # (Auto) 0.4 th/mm3 (0.0-0.9); Neut # (Auto) 2.5 th/mm3 (1.8-7.7); Neut % (Auto) 62.7 % (16.0-70.0); Platelet Count 215 th/mm3 (150-450); Red Blood Count 5.61 mil/mm3 (4.50-5.90); Red Cell Distribution Width 12.4 % (11.6-17.2)
--- NOTE | 2018-02-26 16:11 | XR ---
EXAM DATE: 02/26/2018 3:48 PM EST AGE/SEX: 42 years / Male INDICATIONS: Cough. CLINICAL DATA: This is the patient's initial encounter. Patient reports that signs and symptoms have been present for 4 - 6 days and indicates a pain score of 10/10. MEDICAL/SURGICAL HISTORY: . AIDS. . Left arm. Right foot. Right hand. Oral. COMPARISON: C, CHEST 2V PA&LAT, 11/06/2017. . FINDINGS: Lungs are hyperinflated. There is no evidence of acute airspace disease. There are no mass densities or effusions. Heart and mediastinal structures are unremarkable. CONCLUSION: Hyperinflated lungs. No evidence of acute airspace disease Electronically signed by: Prudencio Sanchez MD Board Certified Radiologist 02/26/2018 4:10 PM EST
[2018-02-26 16:15] LABS: Chloride 101 meq/L (98-107); Potassium 3.6 meq/L (3.5-5.1); Sodium 136 meq/L (136-145)
[2018-02-26 16:18] LABS: Calcium 9.3 mg/dL (8.5-10.1)
[2018-02-26 16:19] LABS: Anion Gap 11 meq/L (5-15); Blood Urea Nitrogen 19 mg/dL (7-18); Carbon Dioxide 24.3 meq/L (21.0-32.0); Glucose,Random 82 mg/dL (74-106)
[2018-02-26 16:22] LABS: Alanine Aminotransferase 14 U/L (12-78); Aspartate Aminotransferase 20 U/L (15-37); Glomerular Filtration Rate 73 mL/min (>89)
[2018-02-26 16:24] LABS: Total Protein 8.3 g/dL (6.4-8.2)
[2018-02-26 16:25] LABS: Alkaline Phosphatase 77 U/L (45-117)
[2018-02-26] MEDS ORDERED: Bisacodyl 10 MG Supp RECTAL PRN (17:28)
[2018-02-26] MEDS ORDERED: Acetaminophen 325 MG Tablet PO PRN (17:28)
[2018-02-26] MEDS ORDERED: Haloperidol Inj 5 MG/ML Ampul IV.PUSH PRN (18:38)
[2018-02-26] MEDS: predniSONE 20 MG Tablet PO SCH (20:41)
[2018-02-26] MEDS: Sod Chloride 0.9% Inj 1,000 ML IV.CONT SCH (20:41)
[2018-02-27] MEDS: LORazepam 1 MG Tablet PO PRN ×4 (03:59→18:29)
[2018-02-27 07:55] LABS: Bilirubin,Urine Negative (Negative); Clarity,Urine Clear (Clear); Color,Urine Yellow (Yellw/Straw); Glucose,Urine (UA) Negative (Negative); Leukocyte Esterase,Urine Negative (Negative); Nitrite,Urine Negative (Negative); Urobilinogen,Urine 0.2 mg/dL (Less than 2)
[2018-02-27 08:08] LABS: Collection Time,Urine 630 hours
[2018-02-27 08:09] LABS: Squamous Epithelial Cell,Urine 0-5 /hpf (0-5)
[2018-02-27 08:12] LABS: Amphetamine Screen,Urine Pos (Neg)
[2018-02-27 08:13] LABS: Barbiturate Screen,Urine Neg (Neg)
[2018-02-27 08:16] LABS: Cannabinoid Screen,Urine Pos (Neg)
[2018-02-27 08:17] LABS: Cocaine Screen,Urine Neg (Neg)
[2018-02-27 08:55] LABS: Opiate Screen,Urine Neg (Neg)
[2018-02-27] MEDS ORDERED: Influenza (Quadrivalent) Vaccine 0.5 ML Syringe IM ONE (09:00)
[2018-02-27] MEDS: Sod Chloride 0.9% Inj 1,000 ML IV.CONT SCH (09:38)
[2018-02-27] MEDS: predniSONE 20 MG Tablet PO SCH (09:39)
[2018-02-27] MEDS: guaiFENesin/Dextromethorphan 200 MG/20 MG 10 ML UDC PO PRN ×2 (09:40→18:29)
[2018-02-27] MEDS: Azithromycin 250 MG Tablet PO SCH (09:40)
[2018-02-27 10:08] LABS: Baso % (Auto) 1.2 % (0.0-2.0); Eos % (Auto) 0.3 % (0.0-4.0); Hematocrit 40.2 % (39.0-51.0); Hemoglobin 13.8 gm/dL (13.0-17.0); Lymph # (Auto) 0.9 th/mm3 (1.0-4.8); Lymph % (Auto) 22.4 % (9.0-44.0); Mean Corpuscular HGB Conc 34.4 % (32.0-36.0); Mean Corpuscular Hemoglobin 28.8 pg (27.0-34.0); Mean Corpuscular Volume 83.7 fL (80.0-100.0); Mean Platelet Volume 8.8 fL (7.0-11.0); Mono # (Auto) 0.4 th/mm3 (0.0-0.9); Mono % (Auto) 8.7 % (0.0-8.0); Neut # (Auto) 2.8 th/mm3 (1.8-7.7); Neut % (Auto) 67.4 % (16.0-70.0); Platelet Count 195 th/mm3 (150-450); Red Cell Distribution Width 12.8 % (11.6-17.2); White Blood Count 4.1 th/mm3 (4.0-11.0)
[2018-02-27 10:15] LABS: Chloride 107 meq/L (98-107); Potassium 4.2 meq/L (3.5-5.1); Sodium 139 meq/L (136-145)
[2018-02-27 10:30] LABS: Alanine Aminotransferase 13 U/L (12-78); Albumin 3.3 g/dL (3.4-5.0); Alkaline Phosphatase 64 U/L (45-117); Anion Gap 8 meq/L (5-15); Aspartate Aminotransferase 17 U/L (15-37); Blood Urea Nitrogen 15 mg/dL (7-18); Calcium 8.5 mg/dL (8.5-10.1); Carbon Dioxide 24.1 meq/L (21.0-32.0); Glomerular Filtration Rate 82 mL/min (>89); Glucose,Random 79 mg/dL (74-106); Total Protein 7.1 g/dL (6.4-8.2)
--- NOTE | 2018-02-27 12:19 | P.HPIM ---
History of Present Illness Primary Care Physician: No Primary Care Physician History of Present Illness: 42-year-old male with a history of bipolar disorder, alcohol abuse, long- standing HIV, having discontinued his HIV meds 2 years ago, who presents with a one-week history of progressively worsening shortness of breath, cough productive of green sputum, sore throat with dysphasia, unmeasured fevers. He also reports pain in his ribs when he coughs. He reports poor appetite over the past week. He says he did smoke a bowl of methamphetamine a week ago, and methamphetamine positive on urine drug screen ; he says he does not usually smoke meth, and this is a rare occurrence for him. Patient also drinks an 800 mL bottle of undiluted fireball whiskey per day, and reports history of withdrawals and seizures. He said he felt like he was withdrawing with tremors last night, however improved now on CIWA protocol. He reports that cough has improved with nebulizations and cough medicine overnight, however still with sore throat on swallowing Inpatient Certification: I certify that the inpatient services were ordered in accordance with Medicare regulations governing the order. This includes certification that hospital inpatient services are reasonable and necessary and in the case of services not specified as inpatient-only under 42 CFR 419.22(n), that they are appropriately provided as inpatient services in accordance to with the 2-midnight benchmark under 43 CFR 412.3(e) Estimated Total Length of Stay (Days): 2 Plans for Post Hospital Care: Not yet determined Review of Systems All other systems reviewed negative except as stated in HPI PMFSH - History History Provided By: Patient - Medical History Medical History: Medical History (Last Updated 02/27/18 @ 12:13 by Rajiv Alexander MD) Orthopedic trauma AIDS Bipolar 1 disorder HIV (human immunodeficiency virus infection) Hypertension Noncompliance Orthopedic aftercare for healing pathologic lower arm fracture - Family History Family History: Family History (Last Updated 02/27/18 @ 12:13 by Rajiv Alexander MD) Mother Heart disease Father Drug abuse Other Family history of hypertension - Tobacco History Second Hand Smoke Exposure: Yes Tobacco Use In Past 30 Days: Yes Smoking Status: Current every day smoker Tobacco Type: Cigarettes Packs Per Day: 1 Cigarettes Per Day: 20.0 - Alcohol History How Often Do You Have a Drink Containing Alcohol: 4 or more times a week - Substance Use History Substance History: Active Abuse - Substance Use Type Alcohol Status: Active Route Used: By Mouth Last Used: 02/24/18 Reason for Use: Feels Good Comment: drinks to maintain because if he does not then he gets really sick Marijuana Status: Active Route Used: Inhalation Frequency: occasionally when stressed Last Used: 02/25/18 Reason for Use: Calm Down Comment: when stressed - Travel History History of Recent Travel: No Recent Travel in the [place] Within the Last 8 Weeks: No Recent Travel Out of the Country Within the Last 8 Weeks: No - Immunization History Tetanus Immunization: >5 Years Hx Influenza Vaccine This Season: No Medications and Allergies Active Medications: Active Medications Acetaminophen (Tylenol) 650 mg PO Q4H PRN PRN Reason: Temp > 100.4 Al Hydroxide/Mg Hydroxide (Milk Of Magnesia Liq) 30 ml PO Q12H PRN PRN Reason: Mild Constipation Albuterol (Ventolin Hfa Inh) 2 puff INH Q4H PRN PRN Reason: SHORTNESS OF BREATH/WHEEZING Azithromycin (Zithromax) 500 mg PO DAILY [facility] Stop: 03/01/18 09:01 Last Admin: 02/27/18 09:40 Dose: 500 mg Bisacodyl (Dulcolax Supp) 10 mg RECTAL DAILY PRN PRN Reason: SEVERE CONSITIPATION Flumazenil (Romazicon Inj) 0.2 mg IV.PUSH Q1M PRN PRN Reason: OVERSEDATION Guaifenesin/Dextromethorphan (Robitussin Dm Liq) 10 ml PO Q4H PRN PRN Reason: COUGH Haloperidol Lactate (Haldol Inj) 1 mg IV.PUSH Q15M PRN PRN Reason: for severe agitation Sodium Chloride (Ns Inj) 1,000 mls @ 70 mls/hr IV.CONT .[id number] [facility] Last Admin: 02/27/18 09:38 Dose: 70 mls/hr Ipratropium [place] (Atrovent Neb) 0.5 mg NEB Q6HR ALT NEB [facility] Last Admin: 02/27/18 05:31 Dose: Not Given Lactulose (Lactulose Liq) 30 ml PO DAILY PRN PRN Reason: SEVERE CONSITIPATION Lorazepam (Ativan) 1 mg PO Q4H PRN PRN Reason: for CIWA 8-10 Last Admin: 02/27/18 09:40 Dose: 1 mg Lorazepam (Ativan) 2 mg PO Q2H PRN PRN Reason: for CIWA 11-14 Last Admin: 02/26/18 20:37 Dose: 2 mg Lorazepam (Ativan Inj) 2 mg IV.PUSH Q2H PRN PRN Reason: for CIWA 11-14 Lorazepam (Ativan Inj) 2 mg IV.PUSH Q15M PRN PRN Reason: for CIWA > 20 Lorazepam (Ativan Inj) 1 mg IV.PUSH Q4H PRN PRN Reason: for CIWA 8-10 Lorazepam (Ativan Inj) 2 mg IV.PUSH Q1H PRN PRN Reason: for CIWA 15-20 Nystatin (Mycostatin Liq) 5 ml SWISH-SWAL QID [facility] Ondansetron HCl (Zofran Inj) 4 mg IV.PUSH Q6H PRN PRN Reason: NAUSEA OR VOMITING Prednisone (Deltasone) 40 mg PO DAILY [facility] Last Admin: 02/27/18 09:39 Dose: 40 mg Sennosides (Senokot) 17.2 mg PO Q12H PRN PRN Reason: Moderate Constipation Sodium Chloride (Ns Flush) 2 ml IV.FLUSH BID [facility] Last Admin: 02/27/18 09:41 Dose: Not Given Sodium Chloride (Ns Flush) 2 ml IV.FLUSH PRN PRN PRN Reason: FLUSH AFTER USING IV ACCESS Sodium Chloride (Ns Flush) 2 ml IV.FLUSH BID [facility] Last Admin: 02/27/18 09:41 Dose: Not Given Sodium Chloride (Ns Flush) 2 ml IV.FLUSH PRN PRN PRN Reason: FLUSH AFTER USING IV ACCESS Allergies Allergy/AdvReac Type Severity Reaction Status Date / Time No Known Allergies Allergy Verified 02/26/18 15:10 Home Medications Medication Instructions Recorded Confirmed Type No Known Home Medications 11/03/17 02/26/18 History Exam Vital signs: Vital Signs 02/26/18 15:01 02/26/18 16:14 02/26/18 16:31 Temperature 97.6 F Pulse Rate 133 H 93 H Respiratory Rate 20 18 Blood Pressure 125/72 Pulse Oximetry 100 100 02/26/18 16:51 02/26/18 18:59 02/26/18 20:00 Temperature 98.6 F 97.4 F L 98.3 F Pulse Rate 102 H 114 H 101 H Respiratory Rate 20 18 Blood Pressure 119/72 134/90 Pulse Oximetry 99 98 99 02/27/18 08:00 Temperature 95.6 F L Pulse Rate 87 Respiratory Rate 18 Blood Pressure 109/55 L Pulse Oximetry 97 Intake & Output 02/26/18 02/27/18 02/27/18 18:59 06:59 18:59 Intake Total 1519 / 1519 480 / 480 930 / 930 Balance 1519 / 1519 480 / 480 930 / 930 Weight 60.9 kg 63.1 kg Intake: IV 1519 / 1519 930 / 930 NS Inj 1,000 ML @ 70 mls/hr IV. 930 / 930 CONT .[id number] [facility] Rx#: [id number] NS Inj 1,000 ML @ 1000 mls/hr 1000 / 1000 IV.SIG BOLUS [facility] Rx#:[id number] Bactrim Inj 304 MG In D5W Inj 519 / 519 500 ML @ 346 mls/hr IV.SIG ONCE ONE Rx#:[id number] Oral 480 / 480 Other: Weight On Admission 140 kg Narrative: GENERAL: Patient lying in bed. Appears comfortable. Alert and oriented x3. SKIN: Warm and dry. HEAD: Atraumatic. Normocephalic. EYES: Pupils equal and round. No scleral icterus. No injection or drainage. ENT: No nasal bleeding or discharge. Mucous membranes pink and moist. NECK: Trachea midline. No JVD. CARDIOVASCULAR: Regular rate and rhythm. RESPIRATORY: No accessory muscle use. Clear to auscultation. Breath sounds equal bilaterally. GASTROINTESTINAL: Abdomen soft, non-tender, nondistended. Hepatic and splenic margins not palpable. MUSCULOSKELETAL: Extremities without clubbing, cyanosis, or edema. No obvious deformities. Superficial abrasions on legs from patient's job and long care. No erythema or signs of infection. NEUROLOGICAL: Awake and alert. No obvious cranial nerve deficits. Motor grossly within normal limits. Five out of 5 muscle strength in the arms and legs. Normal speech. PSYCHIATRIC: Appropriate mood and affect; insight and judgment normal. Results - Labs CBC & Chem 7: 02/27/18 09:05 02/27/18 09:05 Labs: Short CBC 02/26/18 02/27/18 Range/Units 15:45 09:05 WBC 4.0 4.1 (4.0-11.0) th/mm3 Hgb 15.7 13.8 (13.0-17.0) gm/dL Hct 46.8 40.2 (39.0-51.0) % Plt Count 215 195 (150-450) th/mm3 BMP 02/26/18 02/27/18 15:45 09:05 Sodium 136 139 Potassium 3.6 4.2 Chloride 101 107 Carbon Dioxide 24.3 24.1 BUN 19 H 15 Creatinine 1.10 1.00 Calcium 9.3 8.5 D Liver Function 02/26/18 02/27/18 Range/Units 15:45 09:05 Total Bilirubin 0.4 0.4 (0.2-1.0) mg/dL AST 20 17 (15-37) U/L ALT 14 13 (12-78) U/L Alkaline Phosphatase 77 64 (45-117) U/L Albumin 4.0 3.3 L D (3.4-5.0) g/dL Urine 02/27/18 Range/Units 06:30 Urine Color Yellow (Yellw/Straw) Urine Clarity Clear (Clear) Urine pH 7.0 (5.0-8.5) Ur Specific [place] 1.010 (1.002-1.035) Urine Protein Negative (Neg-Trace) mg/dL Urine Glucose (UA) Negative (Negative) mg/dL - Imaging Impressions Chest X-Ray 02/26/18 15:30 CONCLUSION: Hyperinflated lungs. No evidence of acute airspace disease Caprini VTE Risk Assessment Caprini VTE Risk Assessment: No/Low Risk (score <= 1) Caprini Risk Assessment Model: Point Value = 1 Point Value = 2 Point Value = 3 Point Value = 5 Age 41-60 Minor surgery BMI > 25 kg/m2 Swollen legs Varicose veins or History of unexplained or recurrent spontaneous Oral contraceptives or hormone replacement Sepsis (< 1 month) Serious lung disease, including pneumonia (< 1 month) Abnormal pulmonary function Acute myocardial infarction Congestive heart failure (< 1 month) History of inflammatory bowel disease Medical patient at bed rest Age 61-74 Arthroscopic surgery Major open surgery (> 45 min) Laparoscopic surgery (> 45 min) Malignancy Confined to bed (> 72 hours) Immobilizing plaster cast Central venous access Age >= 75 History of VTE Family history of VTE Factor V Leiden Prothrombin [id number] Lupus anticoagulant Anticardiolipin antibodies Elevated serum homocysteine Heparin-induced thrombocytopenia Other congenital or acquired thrombophilia Stroke (< 1 month) Elective arthroplasty Hip, pelvis, or leg fracture Acute spinal cord injury (< 1 month) Prophylaxis Regimen: Total Risk Factor Score Risk Level Prophylaxis Regimen 0-1 Low Early ambulation 2 Moderate Order ONE of the following: *Sequential Compression Device (SCD) *Heparin 5000 units SQ BID 3-4 Higher Order ONE of the following medications: *Heparin 5000 units SQ TID *Enoxaparin/Lovenox 40 mg SQ daily (WT < 150 kg, CrCl > 30 mL/min) *Enoxaparin/Lovenox 30 mg SQ daily (WT < 150 kg, CrCl > 10-29 mL/min) *Enoxaparin/Lovenox 30 mg SQ BID (WT < 150 kg, CrCl > 30 mL/min) AND/OR *Sequential Compression Device (SCD) 5 or more Highest Order ONE of the following medications: *Heparin 5000 units SQ TID (Preferred with Epidurals) *Enoxaparin/Lovenox 40 mg SQ daily (WT < 150 kg, CrCl > 30 mL/min) *Enoxaparin/Lovenox 30 mg SQ daily (WT < 150 kg, CrCl > 10-29 mL/min) *Enoxaparin/Lovenox 30 mg SQ BID (WT < 150 kg, CrCl > 30 mL/min) AND *Sequential Compression Device (SCD) Assessment and Plan - Plan //Suspected asthma exacerbation //Suspected bronchitis //Pleuritic type chest pain //Suspected sepsis on admission with tachycardia, lactic acid of 2.5. -Chest x-ray with no acute findings D-dimer elevated at 0.75 -Lactic acid improved with thiamine supplementation. We will check CT pulmonary angiogram I suspect this is likely asthma exacerbation due to recent meth smoking -We will continue cough suppressant, nebs as needed, azithromycin. Cough appears to be improving Follow-up pulmonary and Gram //Sore throat -Denies any difficulty swallowing -Patient with chronic alcoholism, Would like to avoid systemic antifungal if possible. -There is very tiny amount of thrush on the tip of his tongue, however none in the back of the throat. -Suspect this is likely secondary to drinking fireball whiskey, as well as smoking meth. -We will start on nystatin swish and swallow, Magic mouthwash. //HIV. Suspected AIDS -We will check lymphocyte profile. //Chronic tobacco abuse. Cessation counseling provided. Discussed Condition With: Patient, nurse H&P: Quality - VTE Deep Vein Thrombosis/Pulmonary Embolism Present on Admission: No
[2018-02-27] MEDS: Nystatin Liq 500,000 UNIT/5 ML UDC SWISH-SWAL SCH ×3 (12:56→20:22)
--- NOTE | 2018-02-27 13:53 | CT ---
EXAM DATE: 02/27/2018 1:44 PM EST AGE/SEX: 42 years / Male INDICATIONS: Short of breath and productive cough. CLINICAL DATA: This is the patient's initial encounter. Patient reports that signs and symptoms have been present for 1 week and indicates a pain score of 0/10. MEDICAL/SURGICAL HISTORY: Hypertension. None. RADIATION DOSE: 7.90 CTDI (mGy) COMPARISON: No prior exams available for comparison. TECHNIQUE: Volumetric scanning was performed using a multi-row detector CT scanner during bolus infu arjun of 65 ml Omnipaque 350 (iohexol) nonionic water-soluble contrast as a single exam dose. The vanessa a was post processed with a variety of visualization algorithms including full volume maximum intensi ty projection and sliding thin slab reformation. Using automated exposure control and adjustment of t he mA and/or kV according to patient size, radiation dose was kept as low as reasonably achievable to obtain optimal diagnostic quality images. DICOM format image data is available electronically for r eview and comparison. FINDINGS: Pulmonary Arteries: No filling defects are seen in the pulmonary arteries out to the subsegmental ve ssels. The left and right pulmonary arteries are normal in diameter. Lung: No infiltrates seen. Effusion: None. Mediastinum: No evidence of mediastinal or hilar adenopathy. Other: The axilla is unremarkable. CONCLUSION: 1. This study is negative for pulmonary embolism. 2. No evidence of acute cardiopulmonary process. Electronically signed by: Prudencio Sanchez MD Board Certified Radiologist 02/27/2018 1:51 PM EST
[2018-02-27] MEDS: Non-Formulary Drug CHEW PRN ×3 (14:13→20:23)
[2018-02-27] MEDS: Nystatin/Diphenhydramine/Lidocaine Mouthwash (Adult) 120 ML Botttle SWISH-SWAL SCH ×2 (18:32→20:21)
[2018-02-28] MEDS: Sod Chloride 0.9% Inj 1,000 ML IV.CONT SCH ×2 (00:36→13:47)
[2018-02-28] MEDS: Azithromycin 250 MG Tablet PO SCH (09:56)
[2018-02-28] MEDS: Nystatin Liq 500,000 UNIT/5 ML UDC SWISH-SWAL SCH ×2 (09:56→13:45)
[2018-02-28] MEDS: Nystatin/Diphenhydramine/Lidocaine Mouthwash (Adult) 120 ML Botttle SWISH-SWAL SCH ×2 (09:56→13:45)
[2018-02-28] MEDS: predniSONE 20 MG Tablet PO SCH (09:56)
--- NOTE | 2018-02-28 10:12 | P.PNIM ---
Subjective Interval history: Patient says that his cough is getting better. Denies any chest pain or shortness of breath. Says he feels like going home. I advised him that lymphocyte profile is still pending and he will need to follow-up with primary care to follow-up on the results. Patient conveys understanding. Physical Exam Vital signs: Vital Signs 02/27/18 12:00 02/27/18 16:00 02/27/18 19:45 Temperature 98.7 F 99.0 F 99.0 F Pulse Rate 91 H 75 79 Respiratory Rate 18 18 16 Blood Pressure 113/61 109/60 120/73 Pulse Oximetry 98 99 97 02/27/18 19:47 02/28/18 00:00 Temperature 99.0 F Pulse Rate 76 80 Respiratory Rate 16 16 Blood Pressure 104/65 Pulse Oximetry 97 Intake & Output 02/27/18 02/28/18 02/28/18 18:59 06:59 18:59 Intake Total 1458 / 1458 1322 / 1322 Balance 1458 / 1458 1322 / 1322 Weight 65.2 kg Intake: IV 1458 / 1458 472 / 472 NS Inj 1,000 ML @ 70 mls/hr IV. 1458 / 1458 472 / 472 CONT .[id number] [facility] Rx#: [id number] Oral 850 / 850 Other: # Voids 3 # Bowel Movements 1 Narrative: GENERAL: Sitting in bed. Walking in room. Appears comfortable. Alert and oriented x4. SKIN: Warm and dry. HEAD: Normocephalic. EYES: No scleral icterus. No injection or drainage. NECK: Supple, trachea midline. No JVD. Mucous membranes moist. No thrush in mouth. CARDIOVASCULAR: Regular rate and rhythm without murmurs, gallops, or rubs. RESPIRATORY: Breath sounds equal bilaterally. No accessory muscle use. GASTROINTESTINAL: Abdomen soft, non-tender, nondistended. MUSCULOSKELETAL: No cyanosis, or edema. BACK: Nontender without obvious deformity. No CVA tenderness. Denies any SI or HI. Results - Labs CBC & Chem 7: 02/27/18 09:05 02/27/18 09:05 Laboratory Results - last 24 hr 02/27/18 02/27/18 02/27/18 09:05 09:05 09:05 CBC w Diff Auto diff final WBC 4.1 RBC 4.80 Hgb 13.8 Hct 40.2 MCV 83.7 MCH 28.8 MCHC 34.4 RDW 12.8 Plt Count 195 MPV 8.8 Neut % (Auto) 67.4 Lymph % (Auto) 22.4 [place] % (Auto) 8.7 H Eos % (Auto) 0.3 Baso % (Auto) 1.2 Neut # (Auto) 2.8 Lymph # (Auto) 0.9 L [place] # (Auto) 0.4 Eos # (Auto) 0.0 Baso # (Auto) 0.0 WBC Differential . Differential Comment . Sodium 139 Potassium 4.2 Chloride 107 Carbon Dioxide 24.1 Anion Gap 8 BUN 15 Creatinine 1.00 Estimated GFR 82 L Random Glucose 79 Lactic Acid Calcium 8.5 D Total Bilirubin 0.4 AST 17 ALT 13 Alkaline Phosphatase 64 Total Creatine Kinase 156 Total Protein 7.1 D Albumin 3.3 L D 02/27/18 11:07 CBC w Diff WBC RBC Hgb Hct MCV MCH MCHC RDW Plt Count MPV Neut % (Auto) Lymph % (Auto) [place] % (Auto) Eos % (Auto) Baso % (Auto) Neut # (Auto) Lymph # (Auto) [place] # (Auto) Eos # (Auto) Baso # (Auto) WBC Differential Differential Comment Sodium Potassium Chloride Carbon Dioxide Anion Gap BUN Creatinine Estimated GFR Random Glucose Lactic Acid 1.2 Calcium Total Bilirubin AST ALT Alkaline Phosphatase Total Creatine Kinase Total Protein Albumin Microbiology 02/26/18 15:40 Blood - Peripheral Aerobic Blood Culture - Preliminary No growth in 1 day 02/26/18 15:40 Blood - Peripheral Anaerobic Blood Culture - Preliminary No growth in 1 day 02/26/18 15:45 Blood - Peripheral Aerobic Blood Culture - Preliminary No growth in 1 day 02/26/18 15:45 Blood - Peripheral Anaerobic Blood Culture - Preliminary No growth in 1 day - Imaging Impressions Chest CTA 02/27/18 00:00 CONCLUSION: 1. This study is negative for pulmonary embolism. 2. No evidence of acute cardiopulmonary process. Assessment and Plan - Plan //Suspected asthma exacerbation //Suspected bronchitis //Pleuritic type chest pain //Suspected sepsis on admission with tachycardia, lactic acid of 2.5. -Chest x-ray with no acute findings D-dimer elevated at 0.75 -Lactic acid improved with thiamine supplementation. We will check CT pulmonary angiogram I suspect this is likely asthma exacerbation due to recent meth smoking -We will continue cough suppressant, nebs as needed, azithromycin. Cough appears to be improving Follow-up pulmonary and Gram = Continue prednisone taper, azithromycin, cough suppressant. Patient advised that he has labs pending, including blood culture, lymphocyte profile. He will need to follow with primary care as outpatient. Patient conveys understanding. //Sore throat -Denies any difficulty swallowing -Patient with chronic alcoholism, Would like to avoid systemic antifungal if possible. -There is very tiny amount of thrush on the tip of his tongue, however none in the back of the throat. -Suspect this is likely secondary to drinking fireball whiskey, as well as smoking meth. -We will start on nystatin swish and swallow, Magic mouthwash. = We will continue on nystatin swish and swallow for 10 days. Advised patient to follow-up with primary care. //HIV. Suspected AIDS -We will check lymphocyte profile. Pending. Patient will need to follow-up with primary care to follow-up on this. Patient advised to follow-up with health department, as he may need to start on prophylaxis for prevention of infection. //Alcohol withdrawal. Patient treated for alcohol withdrawal on admission with improvement Patient would like to stop alcohol completely and go home on Ativan taper. e- Force check. will be prescribed. //Chronic tobacco abuse. Cessation counseling provided. Discussed Condition With: Patient, nurse Discharge Planning: Discharge home in good condition. Activity ad jian. Resume previous diet. Please see discharge medication reconciliation for medication list. Follow-up with health department recommended
== END 2018-02-28 16:34 | disposition home or self-care (01) | DRG 202 ==
LOC: PHED 14:56 → PHEDA 17:19 → PH3 18:46
PROVIDERS: ADMIT Internal Medicine; ATTEND Internal Medicine
CPT/HCPCS: 71010; 71045; 71275; 80053; 80307; 81001; 82550; 83605; 85025; 85379; 86064; 86355; 86357; 86359; 86360; 86379; 87040; 87275; 87276; 87804; 88180; 88184; 88185; 90765; 94640; 94664; 94665; 96365; 97161; 99285; J7030; J7060; J7506; J7512; Q9967